=== PATIENT | male | born 1975 | race Caucasian/White ===

== ENCOUNTER 2020-07-14 06:58 | Emergency (ER) | payer OTHER ==
[2020-07-14 07:45] LABS: CARBON DIOXIDE,CO2 23.3 mmol/L (21.0-32.0); POTASSIUM,K 3.4 mmol/L (3.5-5.1)
[2020-07-14] MEDS ORDERED: Albuterol/Ipratropium 3.0-0.5 MG/3 ML Neb Soln NEB STA (07:47)
[2020-07-14] MEDS ORDERED: methylPREDNISolone Sodium Succinate 40 MG/1 ML SDV IVPUSH ONE (07:48)
--- NOTE | 2020-07-14 07:52 | CR ---
INDICATION: Cough; shortness of breath. COMPARISON: [facility]-view chest June 03, 2019. TECHNIQUE: Portable AP chest. FINDINGS: Normal size cardiac silhouette. Clear lung dexter with no evidence of acute pneumonic infiltrates or CHF. No pneumothorax or pleural effusion. IMPRESSION: No acute pathology. Dictated by El Curry MD @ Jul 14 2020 7:50AM Signed by Dr. El Curry @ Jul 14 2020 7:51AM
[2020-07-14] MEDS ORDERED: Albuterol/Ipratropium 3.0-0.5 MG/3 ML Neb Soln NEB ONE ×2 (08:05→08:20)
[2020-07-14] MEDS ORDERED: Iopamidol 755 MG/ML 500 ML Multipack Bottle IVPUSH STA (09:29)
--- NOTE | 2020-07-14 09:54 | CT ---
INDICATION: Shortness of breath; cough; elevated D-dimer; rule out pulmonary thromboembolism. COMPARISON: Chest radiograph 07/14/2020. TECHNIQUE: CT chest with intravenous contrast; coronal and sagittal reformats. FINDINGS: No CT evidence of pulmonary thromboembolism. Normal size cardiac silhouette without any evidence of pericardial effusion. No abnormal intra pulmonary nodular densities are identified. No evidence of pleural effusion or chest wall pathology. No evidence of pulmonary infiltrates on either side. No pneumothorax or pleural effusion. Limited CT through the upper abdomen is unremarkable. IMPRESSION: Negative CT chest with intravenous contrast. Please note that all CT scans at this facility use dose modulation, iterative reconstruction, and/or weight-based dosing when appropriate to reduce radiation dose to as low as reasonably achievable. Dictated by El Curry MD @ Jul 14 2020 9:48AM Signed by Dr. El Curry @ Jul 14 2020 9:52AM
[2020-07-14] MEDS ORDERED: Azithromycin 250 MG Tab PO STA (09:59)
--- NOTE | 2020-07-14 10:43 | EDM.PDOC ---
ED HPI GENERAL MEDICAL PROBLEM - General Chief Complaint: Respiratory Problem Stated Complaint: TROUBLE BREATHING Time Seen by Provider: 07/14/20 07:11 - History of Present Illness INITIAL COMMENTS - FREE TEXT/NARRATIVE: CHIEF COMPLAINT(S): "I feel like shit." HISTORY OF PRESENT ILLNESS: This is a 44-year-old man with a past medical history of tachycardia and undergoing work-up currently for COPD who comes to the emergency department with a chief complaint of "I feel like shit." The patient states that he feels like shit and that he has to have Covid or pneumonia. The patient states that for the last 4 days he has been experiencing a cough with brownish sputum, shortness of breath. He states that he is undergoing work-up for COPD as he had been smoking 2 packs of cigarettes a day for quite some time. He states that he has gone down to 2 cigarettes a day. He states that he has pulmonary function test scheduled on July 28. He states that he use albuterol at home. He is out of his albuterol. He denies any chest pain, fever, chills, lower extremity edema. He denies any recent travel or recent surgery denies any history of DVT or PE. He states that he has had Mucinex but it does not seem to be working. He states in addition to the cough he is experiencing congestion from allergies. He states that he cannot take any medications because of his prostate as it causes him to increased urination. In addition approximately 2-1/2 to 3 months ago he was diagnosed with "thick blood." He states that in his primary care office they did phlebotomy and they told him that this was due to his smoking and possible COPD. He states that he has had pneumonia in the past and this feels similar. REVIEW OF SYSTEMS: Constitutional: Denies fever, chills. Eyes: Denies eye pain Ears, Nose, Mouth, & Throat: Positive for sinus congestion Cardiovascular: Denies chest pain Respiratory: Positive for shortness of breath and productive cough. Gastrointestinal: Denies Nausea, vomiting, diarrhea, hematochezia. Genitourinary: Denies hematuria Skin:Denies a rash MSK: Denies joint pain Neurological: Positive for headache. Denies numbness, tingling, weakness, diplopia Psychiatric: Denies depression PAST MEDICAL HISTORY: As per history of present illness and as reviewed below otherwise noncontributory. SURGICAL HISTORY: As per history of present illness and as reviewed below otherwise noncontributory. SOCIAL HISTORY: As per history of present illness and as reviewed below otherwise noncontributory. FAMILY HISTORY: As per history of present illness and as reviewed below otherwise noncontributory. EXAMINATION OF ORGAN SYSTEMS/BODY AREAS: Constitutional: Blood pressure was 101/63, heart rate 101, respiratory rate 20 with an oxygen saturation 96% on room air. Temperature 36.4. General: Young man who does appear to be in a moderate amount of respiratory distress Psychiatric: Appropriate mood and affect. Eyes: No scleral icterus or conjunctival erythema ENMT: Moist mucous membranes. No pharyngeal erythema Cardiovascular: Tachycardic but regular no gallops, murmurs, or rubs. Bilateral upper extremity pulses symmetric and intact. No peripheral edema. No JVD. Respiratory: The patient is tachypneic and speaking in 3-4 word sentences. Bilateral expiratory wheezing noted. No crackles. Gastrointestinal: Soft, non-tender, non-distended. Normoactive bowel sounds Genitourinary: No suprapubic tenderness Musculoskeletal: Normal range of motion. Skin: No lesions or abrasions. Neurological: Alert, GCS 15 strength and sensation grossly intact. MEDICAL DECISION MAKING AND COURSE IN THE ED WITH INTERPRETATION/REVIEW OF DIAGNOSTIC STUDIES: This is a 44-year-old man with a past medical history of nonspecific tachycardia and possible COPD who comes to the emergency department with 4 days of shortness of breath and increased sputum production who is tachycardic and tachypneic. At this time given the possibility of COPD and his ongoing work-up we will treat him for COPD exacerbation. We did obtain an EKG which did not reveal any acute signs of ischemia. Differential also includes pneumonia, ACS, pulmonary embolism. Will obtain CBC, BMP, magnesium, troponin, BNP, D-dimer and a Covid swab. We will provide the patient with 3 DuoNeb treatments and IV Solu-Medrol. Given the increase sputum production we will start the patient on Zithromax 500 mg by mouth. We will reevaluate after treatment. Laboratory: CBC reveals a mild leukocytosis of 12.18 with neutrophilic predominance without any left shift. BMP reveals hypokalemia at 3.4, hypocalcemia at 8.4, normal magnesium at 20. Troponin and BNP are negative. D- dimer is positive at 1.48. Covid is negative. The radiological images were viewed by myself along with reading the report from the radiologist. Chest x-ray does not reveal any acute cardiopulmonary process. On reevaluation after DuoNeb treatment to the patient's breathing significantly improved and was able to speak in full sentences. Given the elevated D-dimer we will obtain a CT PE for evaluation. He was amenable to this plan. The radiological images were viewed by myself along with reading the report from the radiologist. CT angiogram of the chest does not reveal any evidence of acute pulmonary embolism. On reevaluation I did discuss results with the patient. I discussed with him I had like to provide him with steroids, azithromycin and an albuterol prescription. I encouraged him to continue to follow-up with his primary care physician and to get his test done given that I do believe this is secondary to COPD. He does have a history of tachycardia and the patient did remain tachycardic throughout her evaluation he is currently getting worked up with outpatient work-up. I continued to encourage him to follow-up. He was amenable discharge at this time and had no further questions. DISPOSITION: The patient was discharged home in stable condition. The patient will follow up with primary care physician within 2 to 3 days CONDITION: Fair PROCEDURES: None FINAL IMPRESSION(S)/DIAGNOSES: 1. Acute dyspnea likely secondary to COPD exacerbation 2. Acute on chronic tachycardia, unknown etiology Wong Dalton M.D. Headache Pain Score (Numeric/FACES): 10 - Related Data Allergies Allergy/AdvReac Type Severity Reaction Status Date / Time No Known Allergies Allergy Verified 07/14/20 07:17 Home Meds: Home Meds Albuterol Sulfate [Albuterol Sulfate HFA] 1 puff INH ASDIRECTED 07/14/20 [History] Albuterol Sulfate [Albuterol Sulfate HFA] 8.5 gm INH Q4HR PRN #1 inhaler 07/14/20 [Rx] Azithromycin [Zithromax] 250 mg PO DAILY #4 tab 07/14/20 [Rx] Fluticasone Propionate [Flonase] 16 gm .XX BID #2 bottle 07/14/20 [Rx] Losartan [Cozaar] 50 mg PO DAILY 07/14/20 [History] predniSONE [Prednisone] 50 mg PO DAILY #5 tablet 07/14/20 [Rx] Past Medical History Cardiovascular History: Reports: Hypertension Genitourinary History: Reports: Renal Calculus - Past Surgical History Male Surgical History: Reports: Lithotripsy (ESWL) Social & Family History - Tobacco Use Years of Tobacco use: 32 - Recreational Drug Use Recreational Drug Use: No ED ROS GENERAL - Review of Systems Review Of Systems: See Below ED EXAM, GENERAL - Physical Exam Exam: See Below Course - Vital Signs Last Recorded V/S: Last Vital Signs Temp 36.4 C 07/14/20 07:17 Pulse 104 H 07/14/20 10:35 Resp 21 H 07/14/20 08:17 BP 126/57 L 07/14/20 10:35 Pulse Ox 93 L 07/14/20 10:35 - Orders/Labs/Meds Labs: Laboratory Tests 07/14/20 07/14/20 07/14/20 Range/Units 07:23 07:23 07:23 WBC 12.18 H (4.0-11.0) K/uL RBC 4.88 (4.50-5.90) M/uL Hgb 15.8 (13.0-17.0) g/dL Hct 46.2 (38.0-50.0) % MCV 94.7 (80.0-98.0) fL MCH 32.4 H (27.0-32.0) pg MCHC 34.2 (31.0-37.0) g/dL RDW Std Deviation 43.6 (28.0-62.0) fl RDW Coeff of Mandi 13 (11.0-15.0) % Plt Count 241 (150-400) K/uL MPV 10.70 (7.40-12.00) fL Neut % (Auto) 71.8 (48.0-80.0) % Lymph % (Auto) 17.3 (16.0-40.0) % [place] % (Auto) 6.3 (0.0-15.0) % Eos % (Auto) 4.0 (0.0-7.0) % Baso % (Auto) 0.6 (0.0-1.5) % Neut # (Auto) 8.7 H (1.4-5.7) K/uL Lymph # (Auto) 2.1 (0.6-2.4) K/uL [place] # (Auto) 0.8 (0.0-0.8) K/uL Eos # (Auto) 0.5 (0.0-0.7) K/uL Baso # (Auto) 0.1 (0.0-0.1) K/uL Nucleated RBC % 0.0 /100WBC Nucleated RBCs # 0 K/uL D-Dimer, Quantitative 1.48 H (0.0-0.50) mg/L FEU Sodium 141 (136-148) mmol/L Potassium 3.4 L (3.5-5.1) mmol/L Chloride 105 (98-107) mmol/L Carbon Dioxide 23.3 (21.0-32.0) mmol/L BUN 19 H (7.0-18.0) mg/dL Creatinine 1.3 (0.8-1.3) mg/dL Est Cr Clr Drug Dosing 65.44 mL/min Estimated GFR (MDRD) 60.0 ml/min Glucose 103 (74-106) mg/dL Calcium 8.4 L (8.5-10.1) mg/dL Magnesium 2.0 (1.8-2.4) mg/dL Troponin I (0.000-0.056) ng/mL B-Natriuretic Peptide (<100) PG/ML SARS-CoV-2 RNA (TODD) (NEGATIVE) 07/14/20 07/14/20 07/14/20 Range/Units 07:23 07:23 07:51 WBC (4.0-11.0) K/uL RBC (4.50-5.90) M/uL Hgb (13.0-17.0) g/dL Hct (38.0-50.0) % MCV (80.0-98.0) fL MCH (27.0-32.0) pg MCHC (31.0-37.0) g/dL RDW Std Deviation (28.0-62.0) fl RDW Coeff of Mandi (11.0-15.0) % Plt Count (150-400) K/uL MPV (7.40-12.00) fL Neut % (Auto) (48.0-80.0) % Lymph % (Auto) (16.0-40.0) % [place] % (Auto) (0.0-15.0) % Eos % (Auto) (0.0-7.0) % Baso % (Auto) (0.0-1.5) % Neut # (Auto) (1.4-5.7) K/uL Lymph # (Auto) (0.6-2.4) K/uL [place] # (Auto) (0.0-0.8) K/uL Eos # (Auto) (0.0-0.7) K/uL Baso # (Auto) (0.0-0.1) K/uL Nucleated RBC % /100WBC Nucleated RBCs # K/uL D-Dimer, Quantitative (0.0-0.50) mg/L FEU Sodium (136-148) mmol/L Potassium (3.5-5.1) mmol/L Chloride (98-107) mmol/L Carbon Dioxide (21.0-32.0) mmol/L BUN (7.0-18.0) mg/dL Creatinine (0.8-1.3) mg/dL Est Cr Clr Drug Dosing mL/min Estimated GFR (MDRD) ml/min Glucose (74-106) mg/dL Calcium (8.5-10.1) mg/dL Magnesium (1.8-2.4) mg/dL Troponin I < 0.050 (0.000-0.056) ng/mL B-Natriuretic Peptide 4 (<100) PG/ML SARS-CoV-2 RNA (TODD) NEGATIVE (NEGATIVE) Meds: Medications Discontinued Medications Generic Name Dose Route Start Last Admin Trade Name Jezq PRN Reason Stop Dose Admin Albuterol/Ipratropium 3 ml 07/14/20 07:47 07/14/20 08:11 Albuterol/Ipratropium 3.0-0.5 Mg/3 Ml Neb Soln NEB 07/14/20 07:48 3 ml ONETIME STA Administration Albuterol/Ipratropium 3 ml 07/14/20 08:05 07/14/20 08:11 Albuterol/Ipratropium 3.0-0.5 Mg/3 Ml Neb Soln NEB 07/14/20 08:06 3 ml ONETIME ONE Administration Albuterol/Ipratropium 3 ml 07/14/20 08:20 07/14/20 08:11 Albuterol/Ipratropium 3.0-0.5 Mg/3 Ml Neb Soln NEB 07/14/20 08:21 3 ml ONETIME ONE Administration Azithromycin 500 mg 07/14/20 09:59 07/14/20 10:24 Azithromycin 250 Mg Tab PO 07/14/20 10:00 500 mg ONETIME STA Administration Iopamidol 100 ml 07/14/20 09:29 07/14/20 09:48 Iopamidol 755 Mg/Ml 500 Ml Multipack Bottle IVPUSH 07/14/20 09:30 100 ml ONETIME STA Administration Methylprednisolone Sodium Succinate 40 mg 07/14/20 07:48 07/14/20 08:32 Methylprednisolone Sodium Succinate 40 Mg/1 Ml Sdv IVPUSH 07/14/20 07:49 40 mg ONETIME ONE Administration Departure - Departure Time of Disposition: 10:41 Disposition: Home, Self-Care 01 Condition: Fair Clinical Impression: Bronchitis - Discharge Information *PRESCRIPTION DRUG MONITORING PROGRAM REVIEWED*: No *COPY OF PRESCRIPTION DRUG MONITORING REPORT IN PATIENT CARLEE: No Prescriptions: Albuterol Sulfate [Albuterol Sulfate HFA] 8.5 gm INH Q4HR PRN #1 inhaler PRN Reason: Shortness Of Breath Fluticasone Propionate [Flonase] 16 gm .XX BID #2 bottle predniSONE [Prednisone] 50 mg PO DAILY #5 tablet Azithromycin [Zithromax] 250 mg PO DAILY #4 tab Instructions: Chronic Obstructive Pulmonary Disease Exacerbation, [id number], Metered Dose Inhaler (No Spacer Used), Postnasal Drip, Allergic Rhinitis, Adult Referrals: Deondre Nuno MD [Primary Care Provider] - Forms: ED Department Discharge Additional Instructions: Your evaluated today on an emergent basis. At this time after the albuterol treatments your symptoms did improve. We did provide you with azithromycin for which I want you to take daily for the next 4 days. In addition we provide you with steroids I recommend you take 5 days of steroids at home. I did recommend Zyrtec and Flonase for allergic symptoms. Your heart rate is elevated and it does appear that you have been working with your primary care physician to figure out the cause. At this time your work-up was negative and your rhythm strip of your heart looked well. I recommend use albuterol every 4-6 hours as needed for shortness of breath and wheezing. Please keep your appointment for pulmonary function tests and follow-up with your primary care physician within 1 week. If you have any new or worsening symptoms please return to the emergency department [facility] [address] [place] [address] [facility] [address] [place] [address] The patient is informed of any results of their evaluation and diagnostic workup and all questions are answered. They are given discharge instructions and return precautions. The patient is stable for discharge. The patient states they understand and agree with the plan and that they will return if their symptoms get worse or if they have any new concerns. The following information is given to patients seen in the emergency department who are being discharged to home. This information is to outline your options for follow-up care. We provide all patients seen in our emergency department with a follow-up referral. The need for follow-up, as well as the timing and circumstances, are variable depending upon the specifics of your emergency department visit. If you don't have a primary care physician on staff, we will provide you with a referral. We always advise you to contact your personal physician following an emergency department visit to inform them of the circumstance of the visit and for follow-up with them and/or the need for any referrals to a consulting specialist. The emergency department will also refer you to a specialist when appropriate. This referral assures that you have the opportunity for follow-up care with a specialist. All of these measure are taken in an effort to provide you with optimal care, which includes your follow-up. Under all circumstances we always encourage you to contact your private physician who remains a resource for coordinating your care. When calling for follow-up care, please make the office aware that this follow-up is from your recent emergency room visit. If for any reason you are refused follow-up, please contact the [facility] Emergency Department at and asked to speak to the emergency department charge nurse. Sepsis Event Note (ED) - Evaluation Sepsis Screening Result: Possible Sepsis Risk
--- NOTE | 2020-07-15 09:35 | PCM.EKG ---
#1 Interpretation EKG Date: 07/14/20 Time: 07:25 Rhythm: NSR Rate (Beats/Min): 101 [place]: Normal P-Wave: Present QRS: Normal ST-T: Normal QT: Normal Comparison: NA - No Prior EKG EKG Interpretation Comments: Sinus Rhythm with occasional PAC
== END 2020-07-14 11:13 | disposition home or self-care (01) ==
LOC: MW.ED 06:58
DX: J40 Bronchitis, not specified as acute or chronic (principal); R00.0 Tachycardia, unspecified; I10 Essential (primary) hypertension; F17.210 Nicotine dependence, cigarettes, uncomplicated; Z79.899 Other long term (current) drug therapy; Z20.822 Contact with and (suspected) exposure to COVID-19
CPT/HCPCS: 36415; 71045; 71275; 80048; 83735; 83880; 84484; 85025; 85379; 87635; 93005; 94640; 96374; 99285; A9270; J2920; Q9967; 93010; 99284; J7620-GY; U0002

== ENCOUNTER 2020-07-18 14:59 | Emergency (ER) | payer OTHER ==
--- NOTE | 2020-07-18 15:02 | EDM.PDOC ---
ED HPI GENERAL MEDICAL PROBLEM - General Chief Complaint: General Stated Complaint: not feeling good Time Seen by Provider: 07/18/20 15:02 Source of Information: Reports: Patient History Limitations: Reports: No Limitations - History of Present Illness INITIAL COMMENTS - FREE TEXT/NARRATIVE: HISTORY AND PHYSICAL: History of present illness: Patient is a 44-year-old male who presents to the emergency room with multiple vague complaints. Patient was seen in our emergency room on 07/14/2020 for cough, shortness of breath and chest pain. He was given a prescription for Z- Calderon, steroid and refilled his albuterol inhaler. He states he has been taking his antibiotic, except for today as he had returning symptoms of shortness of breath, sore throat, sensation of his lips and throat swelling. He is concerned he may have an allergic reaction to his antibiotic and has "strep throat". States he feels nauseated and hasn't been able to keep anything down. reports that he has had shortness of breath and intermittent chest pain for a few years, but worse over the past 1-2 months. Patient denies any fever, chills, headache, change in vision, syncope or near syncope. Denies any chest pain, back pain or cough. Denies any abdominal pain, diarrhea, constipation or dysuria. Has not noted any blood in urine or stool. Patient has been eating and drinking appropriately. Patient was previously a 2 ppd/smoker and has now cut back to just a few cigarettes per day. PMH of hypertension, renal stones and currently being "worked up for COPD". Review of systems: As per history of present illness and below otherwise all systems reviewed and negative. Past medical history: As per history of present illness and as reviewed below otherwise noncontributory. Surgical history: As per history of present illness and as reviewed below otherwise noncontributory. Social history: See social history for further information Family history: As per history of present illness and as reviewed below otherwise noncontributory. Physical exam: General: Well developed and well nourished 44 year old male. Alert and orientated x 3. Nontoxic in appearance and in no acute distress. Vital signs have been reviewed by me. Nursing notes were reviewed. Accompanied by whom is at bedside. HEENT: Atraumatic, normocephalic, pupils equal and reactive bilaterally, negative for conjunctival pallor or scleral icterus, mucous membranes dry/barry, TMs normal bilaterally, throat clear (no erythema or pillar shifting/fullness), neck supple, nontender, trachea midline. No drooling or trismus noted. No meningeal signs. No hot potato voice noted. Lungs: Slightly diminished to auscultation bilaterally. No wheezes, rales, or rhonchi. Chest nontender. Normal work of breathing, no accessory muscles used. Heart: S1S2, tachycardia with regular rate and rhythm without overt murmur, gallops, or rubs. No JVD. No peripheral edema Abdomen: Soft, nondistended, nontender. Normoactive bowel sounds. Negative for masses or costovertebral tenderness. Skin: Chronic dermatitis to upper back and chest (states he's had for years). Otherwise skin is intact, warm, dry. No lesions or rashes noted. Hematologic: No petechiae or purpra. Mucosa appropriate color and normal nail bed color and refill. Extremities: Atraumatic, moves all extremities per self without difficulty or deficits, negative for cords or calf pain. Neurovascular unremarkable. Neuro: Awake, alert, oriented. Cranial nerves II through XII unremarkable. Cerebellum unremarkable. Motor and sensory unremarkable throughout. Exam n onfocal. Psychiatric: Mood and affect are appropriate. Normal thought process. Answering questions appropriately. Notes: *This patient was seen and evaluated during the 2019 SARS-CoV-2 novel coronav irus pandemic period. Community viral transmission is ongoing at time of this encounter and the emergency department is operating under pandemic response procedures. Reviewing patient's ER chart from 07/14/20: patient has similar vague symptoms. It is noted that he's been diagnosed with unspecified tachycardia and is being evaluated for COPD. He has a pulmonary function test with Dr Nuno on 07/28/20. CXR is unremarkable. Patient has a leukocytosis, but has been on steriods over the past 5 days. Due to the initial tachycardia and c/o SOB, a d.dimer was added (even though it was elevated in his last ER visit) it is elevated again today. Will do a CT of chest/abd/pelvis. Vital signs have improved. Negative troponin. CT abd/pelvis shows mild circumferential wall thickening of the distal esophagus (in visualization of lower chest), with associated paraesophageal inflammatory changes including a trace amount of free fluid. Findings likely represent esophagitis. No definite extraluminal air is seen to suggest an esophageal tear/rupture (Boerhaave syndrome). Chest CT shows no evidence of an acute pulmonary embolus. As noted on the CT of the abdomen and pelvis, there is abnormal circumferential wall thickening of the esophagus, with associated paraesophageal inflammatory changes including a trace amount of free fluid. No definite extraluminal air is seen to suggest an esophageal tear/perforation. If there is high clinical suspicion for an esophageal tear, consider further assessment with either an esophagram or EGD. I have talked with the patient about today's findings, including CT results. We discussed admission vs close follow up. Patient declines admission. We will try a GI cocktail. He states he has close follow up with [facility] and is scheduled to see him next week. Reassessment at the time of disposition demonstrates that the patient is in no acute distress. The patient is stable for discharge. Patient and were provided counseling and we discussed in great detail signs and symptoms that would prompt them to return to the Emergency Department. Medication, follow up and supportive care measures were reviewed and discussed. Voices understanding and is agreeable to plan of care. Denies any further questions or concerns at this time. Diagnostics: CBC, CMP, D.Dimer, EKG, CXR, Troponin, UA, Drug Screen, TSH, Strep Therapeutics: IV fluids, Benadryl, Zofran, Pepcid Prescription: Omeprazole Impression: Esophagitis Pharyngitis Plan: 1. You were evaluated today on an emergent basis. Your lab work and imagining show no immediate findings. I would like you to follow up with general surgeon for the inflammatory changes of the esophagus (as we discussed). Take the Omeprazole as directed. Follow up with [facility] for continued symptoms/management. 2. You can alternate Tylenol and ibuprofen as needed for pain and fever management. 3. If your symptoms should worsen, new symptoms develop or any of the signs and symptoms we discussed should arise please return to the emergency room or call 911 (if needed). Definitive disposition and diagnosis as appropriate pending reevaluation and review of above. - Related Data Allergies Allergy/AdvReac Type Severity Reaction Status Date / Time No Known Allergies Allergy Verified 07/18/20 15:07 Home Meds: Home Meds Albuterol Sulfate [Albuterol Sulfate HFA] 1 puff INH ASDIRECTED 07/14/20 [History] Albuterol Sulfate [Albuterol Sulfate HFA] 8.5 gm INH Q4HR PRN #1 inhaler 07/14/20 [Rx] Azithromycin [Zithromax] 250 mg PO DAILY #4 tab 07/14/20 [Rx] Fluticasone Propionate [Flonase] 16 gm .XX BID #2 bottle 07/14/20 [Rx] Losartan [Cozaar] 50 mg PO DAILY 07/14/20 [History] predniSONE [Prednisone] 50 mg PO DAILY #5 tablet 07/14/20 [Rx] Omeprazole 20 mg PO DAILY 30 Days #30 tablet. 07/18/20 [Rx] Past Medical History Cardiovascular History: Reports: Hypertension Genitourinary History: Reports: Renal Calculus - Past Surgical History Male Surgical History: Reports: Lithotripsy ([facility]) ED ROS GENERAL - Review of Systems Review Of Systems: Comprehensive ROS is negative, except as noted in HPI. ED EXAM, GENERAL - Physical Exam Exam: See Below (See dictation) Course - Vital Signs Last Recorded V/S: Last Vital Signs Temp 98.9 F 07/18/20 15:08 Pulse 108 H 07/18/20 15:52 Resp 18 07/18/20 15:52 BP 129/91 H 07/18/20 15:52 Pulse Ox 96 07/18/20 15:52 - Orders/Labs/Meds Orders: Active Orders 24 hr Category Date Time Status EKG Documentation Completion [RC] STAT Care 07/18/20 15:13 Active Labs: Laboratory Tests 07/18/20 07/18/20 07/18/20 Range/Units 15:15 15:15 15:15 WBC 16.76 H (4.0-11.0) K/uL RBC 5.26 (4.50-5.90) M/uL Hgb 16.7 (13.0-17.0) g/dL Hct 48.2 (38.0-50.0) % MCV 91.6 (80.0-98.0) fL MCH 31.7 (27.0-32.0) pg MCHC 34.6 (31.0-37.0) g/dL RDW Std Deviation 41.1 (28.0-62.0) fl RDW Coeff of [place] 13 (11.0-15.0) % Plt Count 270 (150-400) K/uL MPV 10.40 (7.40-12.00) fL Neut % (Auto) 87.1 H (48.0-80.0) % Lymph % (Auto) 5.7 L (16.0-40.0) % [place] % (Auto) 6.3 (0.0-15.0) % Eos % (Auto) 0.7 (0.0-7.0) % Baso % (Auto) 0.2 (0.0-1.5) % Neut # (Auto) 14.6 H (1.4-5.7) K/uL Lymph # (Auto) 1.0 (0.6-2.4) K/uL [place] # (Auto) 1.1 H (0.0-0.8) K/uL Eos # (Auto) 0.1 (0.0-0.7) K/uL Baso # (Auto) 0.0 (0.0-0.1) K/uL D-Dimer, Quantitative (0.0-0.50) mg/L FEU Lactate 0.7 (0.20-2.00) mmol/L Sodium 139 (136-148) mmol/L Potassium 4.0 (3.5-5.1) mmol/L Chloride 103 (98-107) mmol/L Carbon Dioxide 26.5 (21.0-32.0) mmol/L BUN 24 H (7.0-18.0) mg/dL Creatinine 1.0 (0.8-1.3) mg/dL Est Cr Clr Drug Dosing 85.07 mL/min Estimated GFR (MDRD) > 60.0 ml/min Glucose 124 H (74-106) mg/dL Calcium 8.8 (8.5-10.1) mg/dL Total Bilirubin 0.8 (0.2-1.0) mg/dL AST 20 (15-37) IU/L ALT 48 (14-63) IU/L Alkaline Phosphatase 61 (46-116) U/L Troponin I < 0.050 (0.000-0.056) ng/mL Total Protein 7.3 (6.4-8.2) g/dL Albumin 4.0 (3.4-5.0) g/dL Globulin 3.3 (2.6-4.0) g/dL Albumin/Globulin Ratio 1.2 (0.9-1.6) Lipase 117 (73-393) U/L TSH 3rd Generation 0.49 (0.36-3.74) uIU/mL Urine Color Urine Appearance Urine pH (5.0-8.0) Ur Specific [place] (1.001-1.035) Urine Protein (NEGATIVE) mg/dL Urine Glucose (UA) (NEGATIVE) mg/dL Urine Ketones (NEGATIVE) mg/dL Urine Occult Blood (NEGATIVE) Urine Nitrite (NEGATIVE) Urine Bilirubin (NEGATIVE) Urine Urobilinogen (<2.0) EU/dL Ur Leukocyte Esterase (NEGATIVE) Urine RBC (0-2/HPF) Urine WBC (0-5/HPF) Ur Epithelial Cells (NONE-FEW) Urine Bacteria (NEGATIVE) Urine Opiates Screen (NEGATIVE) Ur Oxycodone Screen (NEGATIVE) Urine Methadone Screen (NEGATIVE) Ur Barbiturates Screen (NEGATIVE) Ur Phencyclidine Scrn (NEGATIVE) Ur Amphetamine Screen (NEGATIVE) U Methamphetamines Scrn (NEGATIVE) U Benzodiazepines Scrn (NEGATIVE) U Cocaine Metab Screen (NEGATIVE) U Marijuana (THC) Screen (NEGATIVE) Group A Strep (PCR) (NOT DETECT) 07/18/20 07/18/20 07/18/20 Range/Units 15:15 15:35 16:15 WBC (4.0-11.0) K/uL RBC (4.50-5.90) M/uL Hgb (13.0-17.0) g/dL Hct (38.0-50.0) % MCV (80.0-98.0) fL MCH (27.0-32.0) pg MCHC (31.0-37.0) g/dL RDW Std Deviation (28.0-62.0) fl RDW Coeff of [place] (11.0-15.0) % Plt Count (150-400) K/uL MPV (7.40-12.00) fL Neut % (Auto) (48.0-80.0) % Lymph % (Auto) (16.0-40.0) % [place] % (Auto) (0.0-15.0) % Eos % (Auto) (0.0-7.0) % Baso % (Auto) (0.0-1.5) % Neut # (Auto) (1.4-5.7) K/uL Lymph # (Auto) (0.6-2.4) K/uL [place] # (Auto) (0.0-0.8) K/uL Eos # (Auto) (0.0-0.7) K/uL Baso # (Auto) (0.0-0.1) K/uL D-Dimer, Quantitative 1.84 H (0.0-0.50) mg/L FEU Lactate (0.20-2.00) mmol/L Sodium (136-148) mmol/L Potassium (3.5-5.1) mmol/L Chloride (98-107) mmol/L Carbon Dioxide (21.0-32.0) mmol/L BUN (7.0-18.0) mg/dL Creatinine (0.8-1.3) mg/dL Est Cr Clr Drug Dosing mL/min Estimated GFR (MDRD) ml/min Glucose (74-106) mg/dL Calcium (8.5-10.1) mg/dL Total Bilirubin (0.2-1.0) mg/dL AST (15-37) IU/L ALT (14-63) IU/L Alkaline Phosphatase (46-116) U/L Troponin I (0.000-0.056) ng/mL Total Protein (6.4-8.2) g/dL Albumin (3.4-5.0) g/dL Globulin (2.6-4.0) g/dL Albumin/Globulin Ratio (0.9-1.6) Lipase (73-393) U/L TSH 3rd Generation (0.36-3.74) uIU/mL Urine Color YELLOW Urine Appearance CLEAR Urine pH 6.0 (5.0-8.0) Ur Specific [place] 1.015 (1.001-1.035) Urine Protein NEGATIVE (NEGATIVE) mg/dL Urine Glucose (UA) NEGATIVE (NEGATIVE) mg/dL Urine Ketones NEGATIVE (NEGATIVE) mg/dL Urine Occult Blood SMALL H (NEGATIVE) Urine Nitrite NEGATIVE (NEGATIVE) Urine Bilirubin NEGATIVE (NEGATIVE) Urine Urobilinogen 0.2 (<2.0) EU/dL Ur Leukocyte Esterase NEGATIVE (NEGATIVE) Urine RBC 1-2 (0-2/HPF) Urine WBC 0-1 (0-5/HPF) Ur Epithelial Cells FEW (NONE-FEW) Urine Bacteria RARE (NEGATIVE) Urine Opiates Screen (NEGATIVE) Ur Oxycodone Screen (NEGATIVE) Urine Methadone Screen (NEGATIVE) Ur Barbiturates Screen (NEGATIVE) Ur Phencyclidine Scrn (NEGATIVE) Ur Amphetamine Screen (NEGATIVE) U Methamphetamines Scrn (NEGATIVE) U Benzodiazepines Scrn (NEGATIVE) U Cocaine Metab Screen (NEGATIVE) U Marijuana (THC) Screen (NEGATIVE) Group A Strep (PCR) NOT DETECTED (NOT DETECT) 07/18/20 Range/Units 16:15 WBC (4.0-11.0) K/uL RBC (4.50-5.90) M/uL Hgb (13.0-17.0) g/dL Hct (38.0-50.0) % MCV (80.0-98.0) fL MCH (27.0-32.0) pg MCHC (31.0-37.0) g/dL RDW Std Deviation (28.0-62.0) fl RDW Coeff of [place] (11.0-15.0) % Plt Count (150-400) K/uL MPV (7.40-12.00) fL Neut % (Auto) (48.0-80.0) % Lymph % (Auto) (16.0-40.0) % [place] % (Auto) (0.0-15.0) % Eos % (Auto) (0.0-7.0) % Baso % (Auto) (0.0-1.5) % Neut # (Auto) (1.4-5.7) K/uL Lymph # (Auto) (0.6-2.4) K/uL [place] # (Auto) (0.0-0.8) K/uL Eos # (Auto) (0.0-0.7) K/uL Baso # (Auto) (0.0-0.1) K/uL D-Dimer, Quantitative (0.0-0.50) mg/L FEU Lactate (0.20-2.00) mmol/L Sodium (136-148) mmol/L Potassium (3.5-5.1) mmol/L Chloride (98-107) mmol/L Carbon Dioxide (21.0-32.0) mmol/L BUN (7.0-18.0) mg/dL Creatinine (0.8-1.3) mg/dL Est Cr Clr Drug Dosing mL/min Estimated GFR (MDRD) ml/min Glucose (74-106) mg/dL Calcium (8.5-10.1) mg/dL Total Bilirubin (0.2-1.0) mg/dL AST (15-37) IU/L ALT (14-63) IU/L Alkaline Phosphatase (46-116) U/L Troponin I (0.000-0.056) ng/mL Total Protein (6.4-8.2) g/dL Albumin (3.4-5.0) g/dL Globulin (2.6-4.0) g/dL Albumin/Globulin Ratio (0.9-1.6) Lipase (73-393) U/L TSH 3rd Generation (0.36-3.74) uIU/mL Urine Color Urine Appearance Urine pH (5.0-8.0) Ur Specific [place] (1.001-1.035) Urine Protein (NEGATIVE) mg/dL Urine Glucose (UA) (NEGATIVE) mg/dL Urine Ketones (NEGATIVE) mg/dL Urine Occult Blood (NEGATIVE) Urine Nitrite (NEGATIVE) Urine Bilirubin (NEGATIVE) Urine Urobilinogen (<2.0) EU/dL Ur Leukocyte Esterase (NEGATIVE) Urine RBC (0-2/HPF) Urine WBC (0-5/HPF) Ur Epithelial Cells (NONE-FEW) Urine Bacteria (NEGATIVE) Urine Opiates Screen NEGATIVE (NEGATIVE) Ur Oxycodone Screen NEGATIVE (NEGATIVE) Urine Methadone Screen NEGATIVE (NEGATIVE) Ur Barbiturates Screen NEGATIVE (NEGATIVE) Ur Phencyclidine Scrn NEGATIVE (NEGATIVE) Ur Amphetamine Screen NEGATIVE (NEGATIVE) U Methamphetamines Scrn NEGATIVE (NEGATIVE) U Benzodiazepines Scrn NEGATIVE (NEGATIVE) U Cocaine Metab Screen NEGATIVE (NEGATIVE) U Marijuana (THC) Screen NEGATIVE (NEGATIVE) Group A Strep (PCR) (NOT DETECT) Meds: Medications Discontinued Medications Generic Name Dose Route Start Last Admin Trade Name Freq PRN Reason Stop Dose Admin Al Hydroxide/Mg Hydroxide 15 0 ml 07/18/20 17:26 07/18/20 17:31 ml/ Metoclopramide HCl 5 mg/ PO 07/18/20 17:27 1 each Lidocaine HCl 5 ml ONETIME ONE Administration Diphenhydramine HCl 50 mg 07/18/20 15:13 07/18/20 15:25 Diphenhydramine 50 Mg/Ml Sdv IVPUSH 07/18/20 15:14 50 mg ONETIME ONE Administration Famotidine 20 mg 07/18/20 15:13 07/18/20 15:25 Famotidine 20 Mg/2 Ml Sdv IVPUSH 07/18/20 15:14 20 mg ONETIME ONE Administration Sodium Chloride 1,000 mls @ 999 mls/hr 07/18/20 15:13 07/18/20 15:24 Normal Saline IV 07/18/20 16:13 999 mls/hr STAT ONE Administration Iopamidol 100 ml 07/18/20 16:17 07/18/20 16:18 Iopamidol 755 Mg/Ml 500 Ml Multipack Bottle IVPUSH 07/18/20 16:18 100 ml ONETIME ONE Administration Ondansetron HCl 4 mg 07/18/20 15:13 07/18/20 15:25 Ondansetron 4 Mg/2 Ml Sdv IVPUSH 07/18/20 15:14 4 mg ONETIME ONE Administration Departure - Departure Time of Disposition: 17:31 Disposition: Home, Self-Care 01 Clinical Impression: Esophagitis Pharyngitis Qualifiers: Pharyngitis/tonsillitis etiology: unspecified etiology Qualified Code(s): J02.9 - Acute pharyngitis, unspecified - Discharge Information Prescriptions: Omeprazole 20 mg PO DAILY 30 Days #30 tablet. Instructions: Esophagitis Referrals: Deondre Nuno MD [Primary Care Provider] - Forms: ED Department Discharge Additional Instructions: The following information is given to patients seen in the emergency department who are being discharged to home. This information is to outline your options for follow-up care. We provide all patients seen in our emergency department with a follow-up referral. The need for follow-up, as well as the timing and circumstances, are variable depending upon the specifics of your emergency department visit. If you don't have a primary care physician on staff, we will provide you with a referral. We always advise you to contact your personal physician following an emergency department visit to inform them of the circumstance of the visit and for follow-up with them and/or the need for any referrals to a consulting specialist. The emergency department will also refer you to a specialist when appropriate. This referral assures that you have the opportunity for follow-up care with a specialist. All of these measure are taken in an effort to provide you with optimal care, which includes your follow-up. Under all circumstances we always encourage you to contact your private physician who remains a resource for coordinating your care. When calling for follow-up care, please make the office aware that this follow-up is from your recent emergency room visit. If for any reason you are refused follow-up, please contact the [facility] Emergency Department at and asked to speak to the emergency department charge nurse. [facility] [address] [place] [id number] [facility] [address] [place] [id number] Thank you for choosing the [facility] emergency department in [place] for your medical needs today. It was a pleasure caring for you. Today you were seen in the emergency department for sore throat, shortness of breathe, and possible allergic reaction. 1. You were evaluated today on an emergent basis. Your lab work and imagining show no immediate findings. I would like you to follow up with general surgeon for the inflammatory changes of the esophagus (as we discussed). Take the Omeprazole as directed. Follow up with [facility] for continued symptoms/management. 2. You can alternate Tylenol and ibuprofen as needed for pain and fever ma nagement. 3. If your symptoms should worsen, new symptoms develop or any of the signs and symptoms we discussed should arise please return to the emergency room or call 911 (if needed). Sepsis Event Note (ED) - Focused Exam Vital Signs: Vital Signs Temp Pulse Resp BP Pulse Ox 07/18/20 15:52 108 H 18 129/91 H 96 07/18/20 15:08 98.9 F 130 H 19 138/91 H 95 - My Orders Last 24 Hours: My Active Orders 07/18/20 15:13 EKG Documentation Completion [RC] STAT - Assessment/Plan Last 24 Hours: My Active Orders 07/18/20 15:13 EKG Documentation Completion [RC] STAT
[2020-07-18] MEDS ORDERED: Famotidine 20 MG/2 ML SDV IVPUSH ONE (15:13)
[2020-07-18] MEDS ORDERED: Ondansetron 4 MG/2 ML SDV IVPUSH ONE (15:13)
[2020-07-18] MEDS ORDERED: diphenhydrAMINE 50 MG/ML SDV IVPUSH ONE (15:13)
[2020-07-18] MEDS ORDERED: Sodium Chloride 0.9% 1,000 ML IV ONE (15:13)
--- NOTE | 2020-07-18 15:35 | CR ---
INDICATION: Chest pain TECHNIQUE: Chest 1 view. COMPARISON: Chest x-ray 07/14/2020 FINDINGS: The heart is normal in size. The pulmonary vasculature is within normal limits. The lungs are clear. IMPRESSION: No acute process. Dictated by Patricia Robles MD @ Jul 18 2020 3:32PM Signed by Dr. Patricia Rolbes @ Jul 18 2020 3:34PM
[2020-07-18 15:49] LABS: BLOOD UREA NITROGEN,BUN 24 mg/dL (7.0-18.0); CARBON DIOXIDE,CO2 26.5 mmol/L (21.0-32.0); CHLORIDE,CL 103 mmol/L (98-107); GLUCOSE RANDOM 124 mg/dL (74-106); LIPASE 117 U/L (73-393); SODIUM,NA 139 mmol/L (136-148)
--- NOTE | 2020-07-18 16:00 | PCM.EKG ---
#1 Interpretation EKG Date: 07/18/20 Time: 15:37 Rhythm: NSR Rate (Beats/Min): 105 [place]: Normal P-Wave: Present QRS: Normal ST-T: Normal QT: Normal OK/PQ Interval: 160 Comparison: NA - No Prior EKG EKG Interpretation Comments: no evidence of ischemia
[2020-07-18] MEDS ORDERED: Iopamidol 755 MG/ML 500 ML Multipack Bottle IVPUSH ONE (16:17)
--- NOTE | 2020-07-18 17:02 | CT ---
INDICATION: Nausea and vomiting. TECHNIQUE: CT abdomen and pelvis acquired with 100 mL Isovue 370 IV contrast. COMPARISON: No prior CT of the abdomen and pelvis. FINDINGS: Lower chest: Heart size is within normal limits. No pericardial effusion. There is mild circumferential wall thickening of the distal esophagus, with associated paraesophageal inflammatory changes including a small amount of free fluid. No definite extraluminal air is seen. Mild bibasilar atelectasis. Liver: Normal size and attenuation with no appreciable intrahepatic mass. Spleen: Normal size. Pancreas: No appreciable pancreatic mass or acute inflammatory changes. Gallbladder and bile ducts: No calcified stones are seen within the gallbladder. No gallbladder wall thickening. Mild prominence of intrahepatic bile ducts is nonspecific. The extrahepatic bile ducts are normal in caliber. Kidneys: Normal size. There are multiple small nonobstructing intrarenal calculi. No obstructing urinary tract stones or hydroureteronephrosis. Adrenal glands: No adrenal mass or hemorrhage. GI tract: Distal esophageal findings as noted above. No abnormally dilated small or large bowel to suggest obstruction. Appendix is normal. Vascular structures: Normal caliber abdominal aorta. Lymph nodes: No pathologically enlarged lymph nodes are seen in the abdomen or pelvis. Miscellaneous: No free intraperitoneal air. No free fluid is seen in the abdomen or pelvis. Pelvic Organs: Unremarkable urinary bladder. Prostate is mildly enlarged. Bones: No acute abnormality. Pars defects are seen at L5 with low-grade anterolisthesis at L5-S1. IMPRESSION: 1. In the visualized lower chest, there is mild circumferential wall thickening of the distal esophagus, with associated paraesophageal inflammatory changes including a trace amount of free fluid. Findings likely represent esophagitis. No definite extraluminal air is seen to suggest an esophageal tear/rupture (Boerhaave syndrome). 2. Incidental findings as noted. Dictated by Kunal Schaffer MD @ 07/18/2020 4:58:47 PM Please note that all CT scans at this facility use dose modulation, iterative reconstruction, and/or weight-based dosing when appropriate to reduce radiation dose to as low as reasonably achievable. Dictated by: Kunal Schaffer MD @ 07/18/2020 17:01:12 (Electronically Signed)
--- NOTE | 2020-07-18 17:15 | CT ---
INDICATION: Chest pain. Shortness of breath. Nausea and vomiting. TECHNIQUE: CT chest pulmonary angiogram acquired with 100 mL Isovue 370 IV contrast. COMPARISON: CTPA from 07/14/2020. CT abdomen and pelvis from earlier today. FINDINGS: Pulmonary arteries: Adequate contrast opacification. No filling defects to suggest an acute pulmonary embolus. Remainder of the chest: Normal heart size. No pericardial effusion. Normal caliber thoracic aorta with no thoracic aortic dissection. No appreciable lymphadenopathy. Bibasilar atelectasis. Trace pleural fluid. This is presumably reactive to the findings below. There is abnormal wall thickening of the majority of the esophagus, with associated paraesophageal inflammatory changes including a trace amount of free fluid. No definite extraluminal air is seen to suggest esophageal perforation. Bones: No acute abnormality. Upper abdomen: Please see the CT from earlier today. IMPRESSION: 1. No evidence of an acute pulmonary embolus. 2. As noted on the CT of the abdomen and pelvis, there is abnormal circumferential wall thickening of the esophagus, with associated paraesophageal inflammatory changes including a trace amount of free fluid. No definite extraluminal air is seen to suggest an esophageal tear/perforation. If there is high clinical suspicion for an esophageal tear, consider further assessment with either an esophagram or EGD. Dictated by Kunal Schaffer MD @ 07/18/2020 5:13:10 PM Please note that all CT scans at this facility use dose modulation, iterative reconstruction, and/or weight-based dosing when appropriate to reduce radiation dose to as low as reasonably achievable. Dictated by: Kunal Schaffer MD @ 07/18/2020 17:13:23 (Electronically Signed)
[2020-07-18] MEDS ORDERED: Alum Hydrox/Mag Hydrox/Simeth 15 ML, Metoclopramide 5 MG, Lidocaine 2% 5 ML PO ONE ×3 (17:26)
== END 2020-07-18 17:42 | disposition home or self-care (01) ==
LOC: MW.ED 14:59
DX: K20.90 Esophagitis, unspecified without bleeding (principal); J02.9 Acute pharyngitis, unspecified; I10 Essential (primary) hypertension; F17.200 Nicotine dependence, unspecified, uncomplicated; Z79.899 Other long term (current) drug therapy
CPT/HCPCS: 36415; 71045; 71275; 74177; 80053; 80305; 81001; 83605; 83690; 84443; 84484; 85025; 85379; 87651; 93005; 96361; 96374; 96375; 99285; A9270; J1200; J2405; J3490; J7030; Q9967

== ENCOUNTER 2020-07-21 08:22 | Observation (INO) | payer OTHER ==
--- NOTE | 2020-07-21 08:26 | EDM.PDOC ---
ED HPI GENERAL MEDICAL PROBLEM - General Chief Complaint: Respiratory Problem Stated Complaint: COPD Time Seen by Provider: 07/21/20 08:26 Source of Information: Reports: Patient History Limitations: Reports: No Limitations - History of Present Illness INITIAL COMMENTS - FREE TEXT/NARRATIVE: 44-year-old male past medical history hypertension presents for apparent allergic reaction. Patient notes that he was seen in the emergency department last week and given prednisone and azithromycin. He has been worked up for COPD. He was also given albuterol inhaler. On the last day of his medications he noted development of urticarial rash with itching and sensation of scratchy throat and shortness of breath. He came to the emergency department 3 days ago for concern for allergic reaction. He was given IV Benadryl, fluids, Pepcid. Symptoms did get better but did not completely go away. He notes that symptoms have been worsening ever since and complains of persistent scratchy throat, urticarial rash worse on head and upper torso, arms. He notes mild shortness of breath but denies airway closing sensation. No fevers that he has noted. He does endorse anxiety. His only other medication is losartan which he has been taking for roughly 1 month. - Related Data Allergies Allergy/AdvReac Type Severity Reaction Status Date / Time No Known Allergies Allergy Verified 07/21/20 08:27 Home Meds: Home Meds Albuterol Sulfate [Albuterol Sulfate HFA] 1 puff INH ASDIRECTED 07/14/20 [History] Albuterol Sulfate [Albuterol Sulfate HFA] 8.5 gm INH Q4HR PRN #1 inhaler 07/14/20 [Rx] Fluticasone Propionate [Flonase] 16 gm .XX BID #2 bottle 07/14/20 [Rx] Losartan [Cozaar] 50 mg PO DAILY 07/14/20 [History] Omeprazole 20 mg PO DAILY 30 Days #30 tablet. 07/18/20 [Rx] Past Medical History Cardiovascular History: Reports: Hypertension Genitourinary History: Reports: Renal Calculus - Infectious Disease History Infectious Disease History: Reports: Chicken Pox - Past Surgical History Male Surgical History: Reports: Lithotripsy (ESWL) Social & Family History - Family History Family Medical History: No Pertinent Family History - Caffeine Use Caffeine Use: Reports: Coffee ED ROS GENERAL - Review of Systems Review Of Systems: Comprehensive ROS is negative, except as noted in HPI. ED EXAM, GENERAL - Physical Exam Exam: See Below Exam Limited By: No Limitations General Appearance: Alert, WD/WN, No Apparent Distress Throat/Mouth: Normal Voice, No Airway Compromise, Other (Erythema of oropharynx without enlargement of tonsils, uvula is midline, no airway obstruction) Head: Atraumatic, Normocephalic Neck: Normal Inspection Respiratory/Chest: No Respiratory Distress, Lungs Clear, Normal Breath Sounds, No Accessory Muscle Use Cardiovascular: Normal Peripheral Pulses, Regular Rate, Rhythm Extremities: Normal Inspection Neurological: Alert, Normal Gait Psychiatric: Normal Affect, Normal Mood Skin Exam: Warm, Dry, Intact, Normal Color, Other (Diffuse urticarial rash most often on patient's face, neck, upper torso, arms) #1 Interpretation EKG Date: 07/21/20 Time: 08:44 Rhythm: NSR Rate (Beats/Min): 129 [place]: Normal P-Wave: Present QRS: Normal ST-T: Normal QT: Normal ME/PQ Interval: 145 EKG Interpretation Comments: Sinus tachycardia without ischemic changes Course - Vital Signs Last Recorded V/S: Last Vital Signs Temp 97.6 F 07/21/20 08:29 Pulse 121 H 07/21/20 09:29 Resp 18 07/21/20 09:29 BP 133/94 H 07/21/20 09:29 Pulse Ox 95 07/21/20 09:29 - Orders/Labs/Meds Orders: Active Orders 24 hr Category Date Time Status Cardiac Monitoring [RC] . DIRECTED Care 07/21/20 08:32 Active EKG Documentation Completion [RC] STAT Care 07/21/20 08:32 Active Pulse Oximetry [RC] ASDIRECTED Care 07/21/20 08:32 Active RT Aerosol Therapy [RC] ASDIRECTED Care 07/21/20 08:35 Active CORONAVIRUS COVID-19 TODD [MOLEC] Stat Lab 07/21/20 10:16 Received RPR (SYPHILIS SERO) W/ RFLX [REF] Stat Lab 07/21/20 10:59 Ordered Sodium Chloride 0.9% [Saline Flush] Med 07/21/20 08:32 Active 10 ml FLUSH ASDIRECTED PRN Sodium Chloride 0.9% [Saline Flush] Med 07/21/20 08:32 Active 2.5 ml FLUSH ASDIRECTED PRN Saline Lock Insert [OM.PC] Stat Oth 07/21/20 08:32 Ordered Medication Orders Sodium Chloride (Sodium Chloride 0.9% 10 Ml Syringe) 10 ml FLUSH ASDIRECTED PRN PRN Reason: Keep Vein Open Last Admin: 07/21/20 08:42 Dose: 10 ml Documented by: [id number] Sodium Chloride (Sodium Chloride 0.9% 2.5 Ml Syringe) 2.5 ml FLUSH ASDIRECTED PRN PRN Reason: Keep Vein Open Last Admin: 07/21/20 08:42 Dose: 2.5 ml Documented by: [id number] Labs: Laboratory Tests 07/21/20 07/21/20 07/21/20 Range/Units 08:38 08:38 10:21 WBC 17.69 H (4.0-11.0) K/uL RBC 5.27 (4.50-5.90) M/uL Hgb 16.8 (13.0-17.0) g/dL Hct 49.5 (38.0-50.0) % MCV 93.9 (80.0-98.0) fL MCH 31.9 (27.0-32.0) pg MCHC 33.9 (31.0-37.0) g/dL RDW Std Deviation 43.7 (28.0-62.0) fl RDW Coeff of Mandi 13 (11.0-15.0) % Plt Count 299 (150-400) K/uL MPV 10.20 (7.40-12.00) fL Neut % (Auto) 87.7 H (48.0-80.0) % Lymph % (Auto) 6.7 L (16.0-40.0) % [place] % (Auto) 5.0 (0.0-15.0) % Eos % (Auto) 0.5 (0.0-7.0) % Baso % (Auto) 0.1 (0.0-1.5) % Neut # (Auto) 15.5 H (1.4-5.7) K/uL Lymph # (Auto) 1.2 (0.6-2.4) K/uL [place] # (Auto) 0.9 H (0.0-0.8) K/uL Eos # (Auto) 0.1 (0.0-0.7) K/uL Baso # (Auto) 0.0 (0.0-0.1) K/uL Nucleated RBC % 0.0 /100WBC Nucleated RBCs # 0 K/uL Sodium 136 (136-148) mmol/L Potassium 3.5 (3.5-5.1) mmol/L Chloride 101 (98-107) mmol/L Carbon Dioxide 27.0 (21.0-32.0) mmol/L BUN 18 (7.0-18.0) mg/dL Creatinine 1.1 (0.8-1.3) mg/dL Est Cr Clr Drug Dosing 77.33 mL/min Estimated GFR (MDRD) > 60.0 ml/min Glucose 122 H (74-106) mg/dL Calcium 8.5 (8.5-10.1) mg/dL Total Bilirubin 0.8 (0.2-1.0) mg/dL AST 20 (15-37) IU/L ALT 43 (14-63) IU/L Alkaline Phosphatase 58 (46-116) U/L C-Reactive Protein 1.20 H (0.00-0.90) mg/dL Total Protein 6.8 (6.4-8.2) g/dL Albumin 3.5 (3.4-5.0) g/dL Globulin 3.3 (2.6-4.0) g/dL Albumin/Globulin Ratio 1.1 (0.9-1.6) Urine Color YELLOW Urine Appearance CLEAR Urine pH 6.0 (5.0-8.0) Ur Specific [place] 1.025 (1.001-1.035) Urine Protein NEGATIVE (NEGATIVE) mg/dL Urine Glucose (UA) NEGATIVE (NEGATIVE) mg/dL Urine Ketones NEGATIVE (NEGATIVE) mg/dL Urine Occult Blood MODERATE H (NEGATIVE) Urine Nitrite NEGATIVE (NEGATIVE) Urine Bilirubin NEGATIVE (NEGATIVE) Urine Urobilinogen 0.2 (<2.0) EU/dL Ur Leukocyte Esterase NEGATIVE (NEGATIVE) Urine RBC 8-12 (0-2/HPF) Urine WBC 0- (0-5/HPF) Ur Epithelial Cells RARE (NONE-FEW) Urine Bacteria FEW (NEGATIVE) Urine Mucus LIGHT (NONE-MOD) Meds: Medications Generic Name Dose Route Start Last Admin Trade Name Freq PRN Reason Stop Dose Admin Sodium Chloride 10 ml 07/21/20 08:32 07/21/20 08:42 Sodium Chloride 0.9% 10 Ml Syringe FLUSH 10 ml ASDIRECTED PRN Administration Keep Vein Open Sodium Chloride 2.5 ml 07/21/20 08:32 07/21/20 08:42 Sodium Chloride 0.9% 2.5 Ml Syringe FLUSH 2.5 ml ASDIRECTED PRN Administration Keep Vein Open Discontinued Medications Generic Name Dose Route Start Last Admin Trade Name Freq PRN Reason Stop Dose Admin Albuterol/Ipratropium 3 ml 07/21/20 08:34 07/21/20 08:41 Albuterol/Ipratropium 3.0-0.5 Mg/3 Ml Neb Soln NEB 07/21/20 08:35 3 ml ONETIME ONE Administration Diphenhydramine HCl 50 mg 07/21/20 08:34 07/21/20 08:41 Diphenhydramine 50 Mg/Ml Sdv IVPUSH 07/21/20 08:35 50 mg ONETIME ONE Administration Famotidine 40 mg 07/21/20 08:34 07/21/20 08:41 Famotidine 20 Mg/2 Ml Sdv IVPUSH 07/21/20 08:35 40 mg ONETIME ONE Administration Sodium Chloride 1,000 mls @ 999 mls/hr 07/21/20 08:32 07/21/20 08:42 Normal Saline IV 07/21/20 09:32 999 mls/hr .Bolus ONE Administration Sodium Chloride 1,000 mls @ 999 mls/hr 07/21/20 08:34 07/21/20 08:42 Normal Saline IV 07/21/20 09:34 999 mls/hr .Bolus ONE Administration Lidocaine HCl 20 ml 07/21/20 08:41 07/21/20 08:46 Lidocaine 2% Viscous Solution 100 Ml Bottle PO 07/21/20 08:42 Not Given ONETIME ONE Lidocaine HCl 15 ml 07/21/20 08:43 07/21/20 08:46 Lidocaine 2% Viscous Solution 15 Ml Cup PO 07/21/20 08:44 15 ml ONETIME ONE Administration Methylprednisolone Sodium Succinate 125 mg 07/21/20 08:34 07/21/20 08:41 Methylprednisolone Sodium Succinate 125 Mg/2 Ml Sdv IVPUSH 07/21/20 08:35 125 mg ONETIME ONE Administration - Re-Assessments/Exams Free Text/Narrative Re-Assessment/Exam: 07/21/20 08:43 Patient symptoms are consistent with an allergic reaction. Will give methylprednisolone, Pepcid, Benadryl, IV fluid bolus. Will give DuoNeb as he does have mild wheezing. He is being worked up for COPD. If patient responds well to medications I will discharge him with a higher dose longer course of tapering prednisone. Patient will need to be followed up by [facility] bag sewer to help elucidate the underlying cause of his recurrent allergic reaction. I will recommend that patient discontinue losartan and we will start him on a different antihypertensive in case this is the cause of symptoms. I also advised patient not take azithromycin again until cleared by bur[facility] bag sewer. 07/21/20 10:59 Patient's symptoms have gotten worse after treatment. His tachycardia is persistent. I am uncertain of the cause of his symptoms. Given the diagnostic uncertainty I reached out to the hospitalist for observation admitted and he agrees to come see the patient and admit for observation. Differential includes viral exanthem versus allergic reaction versus autoimmune condition. He had strep testing 3 days ago which was negative so will defer. We will do a send out RPR to rule out syphilis. Departure - Departure Time of Disposition: 11:01 Disposition: Admitted As Inpatient 66 Condition: Fair Clinical Impression: Rash, Tachycardia Joint pain Qualifiers: Joint pain location: unspecified Qualified Code(s): M25.50 - Pain in unspecified joint - Discharge Information Referrals: Deondre Nuno MD [Primary Care Provider] - Forms: ED Department Discharge Sepsis Event Note (ED) - Focused Exam Vital Signs: Vital Signs Temp Pulse Resp BP Pulse Ox 07/21/20 09:29 121 H 18 133/94 H 95 07/21/20 09:14 127 H 18 140/90 96 07/21/20 08:59 126 H 18 130/90 97 07/21/20 08:29 97.6 F 136 H 22 H 121/88 97 - My Orders Last 24 Hours: My Active Orders 07/21/20 08:32 Cardiac Monitoring [RC] . DIRECTED EKG Documentation Completion [RC] STAT Pulse Oximetry [RC] ASDIRECTED Sodium Chloride 0.9% [Saline Flush] 10 ml FLUSH ASDIRECTED PRN Sodium Chloride 0.9% [Saline Flush] 2.5 ml FLUSH ASDIRECTED PRN Saline Lock Insert [OM.PC] Stat 07/21/20 08:35 RT Aerosol Therapy [RC] ASDIRECTED 07/21/20 10:16 CORONAVIRUS COVID-19 TODD [MOLEC] Stat 07/21/20 10:59 RPR (SYPHILIS SERO) W/ RFLX [REF] Stat - Assessment/Plan Last 24 Hours: My Active Orders 07/21/20 08:32 Cardiac Monitoring [RC] . DIRECTED EKG Documentation Completion [RC] STAT Pulse Oximetry [RC] ASDIRECTED Sodium Chloride 0.9% [Saline Flush] 10 ml FLUSH ASDIRECTED PRN Sodium Chloride 0.9% [Saline Flush] 2.5 ml FLUSH ASDIRECTED PRN Saline Lock Insert [OM.PC] Stat 07/21/20 08:35 RT Aerosol Therapy [RC] ASDIRECTED 07/21/20 10:16 CORONAVIRUS COVID-19 TODD [MOLEC] Stat 07/21/20 10:59 RPR (SYPHILIS SERO) W/ RFLX [REF] Stat
[2020-07-21] MEDS ORDERED: Sodium Chloride 0.9% 1,000 ML IV ONE ×2 (08:32→08:34)
[2020-07-21] MEDS ORDERED: Sodium Chloride 0.9% 10 ML Syringe FLUSH PRN (08:32)
[2020-07-21] MEDS ORDERED: Sodium Chloride 0.9% 2.5 ML Syringe FLUSH PRN (08:32)
[2020-07-21] MEDS ORDERED: Famotidine 20 MG/2 ML SDV IVPUSH ONE (08:34)
[2020-07-21] MEDS ORDERED: diphenhydrAMINE 50 MG/ML SDV IVPUSH ONE (08:34)
[2020-07-21] MEDS ORDERED: Albuterol/Ipratropium 3.0-0.5 MG/3 ML Neb Soln NEB ONE (08:34)
[2020-07-21] MEDS ORDERED: methylPREDNISolone Sodium Succinate 125 MG/2 ML SDV IVPUSH ONE (08:34)
[2020-07-21] MEDS ORDERED: Lidocaine 2% Viscous Solution 100 ML Bottle PO ONE (08:41)
[2020-07-21] MEDS ORDERED: Lidocaine 2% Viscous Solution 15 ML Cup PO ONE (08:43)
[2020-07-21 09:15] LABS: BLOOD UREA NITROGEN,BUN 18 mg/dL (7.0-18.0); CHLORIDE,CL 101 mmol/L (98-107); GLUCOSE RANDOM 122 mg/dL (74-106); POTASSIUM,K 3.5 mmol/L (3.5-5.1); SODIUM,NA 136 mmol/L (136-148)
--- NOTE | 2020-07-21 09:36 | CR ---
INDICATION: Shortness of breath. TECHNIQUE: Single view. COMPARISON: 07/18/2020. FINDINGS: Heart size is normal and stable. Lungs are free of infiltrate. No pulmonary edema is seen. No significant infiltrate is seen. IMPRESSION: Stable chest x-ray. No significant infiltrate or pulmonary edema is seen. Dictated by Eligio Martin MD @ Jul 21 2020 9:35AM Signed by Dr. Eliigo Martin @ Jul 21 2020 9:36AM
--- NOTE | 2020-07-21 12:31 | PCM.HP.2 ---
H&P History of Present Illness - General Date of Service: 07/21/20 Admit Problem/Dx: Admission Diagnosis/Problem Admission Diagnosis/Problem Tachycardia - History of Present Illness Initial Comments - Free Text/Narative: 44 yo male who presents to the ED today with a complaint of rash. Patient had been followed by Dr. Nuno for hypertension. He was started on Losartan for hypertenison. He was also know to have tachycardia which hs been unexplained. Patient is a smoker and had been short of breath last week. He was started on Azithromycin, albuterol and prednisone. On the last day of his Azihtromycin he developed a raised macular papular rash on his body extremities and face. PAtient also reported sore throat and lip swelling. He was seen in for these symptoms of 07/17/20. CT scan of his C/A/P was negative for PE but showed distal esophageal thinking and stranding suggestive of esophagitis. He was treated with pepcid, benadryl and zofran and discharged home. He presents to day with complaints of worsening rash, and swelling of his eyelids, lips and tongue. He denies any shortness of breath, difficulty breathing or eating. He denies any chest pain, abdominal pain, fever, blood in stool, or diarrhea. - Related Data Allergies/Adverse Reactions: Allergies Allergy/AdvReac Type Severity Reaction Status Date / Time No Known Allergies Allergy Verified 07/22/20 06:29 Home Medications: Home Meds RX: Albuterol Sulfate [Albuterol Sulfate HFA] 1 puff INH ASDIRECTED 07/14/20 [History] RX: Albuterol Sulfate [Albuterol Sulfate HFA] 8.5 gm INH Q4HR PRN #1 inhaler 07/14/20 [Rx] RX: Fluticasone Propionate [Flonase] 16 gm .XX BID #2 bottle 07/14/20 [Rx] RX: Omeprazole 20 mg PO DAILY 30 Days #30 tablet. 07/18/20 [Rx] EPINEPHrine [Epinephrine] 0.3 mg IJ ONETIME PRN #2 auto.injct 07/22/20 [Rx] Loratadine [Claritin] 10 mg PO BID #60 tab 07/22/20 [Rx] Past Medical History Cardiovascular History: Reports: Hypertension Respiratory History: Reports: COPD Gastrointestinal History: Reports: GERD Genitourinary History: Reports: Renal Calculus - Infectious Disease History Infectious Disease History: Reports: Chicken Pox - Past Surgical History Male Surgical History: Reports: Lithotripsy (ESWL) Social & Family History - Family History Family Medical History: No Pertinent Family History - Tobacco Use Tobacco Use Status *Q: Unknown Ever Used Tobacco - Caffeine Use Caffeine Use: Reports: None - Recreational Drug Use Recreational Drug Use: No H&P Review of Systems - Review of Systems: Review Of Systems: Comprehensive ROS is negative, except as noted in HPI. Exam - Exam Exam: See Below - Vital Signs Vital Signs: Last Vital Signs Temp 36.4 C 07/21/20 08:29 Pulse 116 H 07/21/20 12:08 Resp 17 07/21/20 12:08 BP 126/83 07/21/20 12:08 Pulse Ox 98 07/21/20 12:08 Weight: 72.575 kg - Exam General: Alert, Oriented HEENT: Conjunctiva Clear, Mucosa Moist & [place], Other (posterior pharynx erythematous, no edema noted) Neck: Supple Lungs: Clear to Auscultation, Normal Respiratory Effort Cardiovascular: Regular Rhythm, Tachycardia GI/Abdominal Exam: Normal Bowel Sounds, Soft, Non-Tender Extremities: Non-Tender, No Pedal Edema Skin: Other (raised red macual papular rash on head hands, arms, legs and trunk) - Patient Data Lab Results Last 24 hrs: Laboratory Results - last 24 hr 07/21/20 07/21/20 07/21/20 Range/Units 08:38 08:38 10:16 WBC 17.69 H (4.0-11.0) K/uL RBC 5.27 (4.50-5.90) M/uL Hgb 16.8 (13.0-17.0) g/dL Hct 49.5 (38.0-50.0) % MCV 93.9 (80.0-98.0) fL MCH 31.9 (27.0-32.0) pg MCHC 33.9 (31.0-37.0) g/dL RDW Std Deviation 43.7 (28.0-62.0) fl RDW Coeff of Mandi 13 (11.0-15.0) % Plt Count 299 (150-400) K/uL MPV 10.20 (7.40-12.00) fL Neut % (Auto) 87.7 H (48.0-80.0) % Lymph % (Auto) 6.7 L (16.0-40.0) % [place] % (Auto) 5.0 (0.0-15.0) % Eos % (Auto) 0.5 (0.0-7.0) % Baso % (Auto) 0.1 (0.0-1.5) % Neut # (Auto) 15.5 H (1.4-5.7) K/uL Lymph # (Auto) 1.2 (0.6-2.4) K/uL [place] # (Auto) 0.9 H (0.0-0.8) K/uL Eos # (Auto) 0.1 (0.0-0.7) K/uL Baso # (Auto) 0.0 (0.0-0.1) K/uL Nucleated RBC % 0.0 /100WBC Nucleated RBCs # 0 K/uL Sodium 136 (136-148) mmol/L Potassium 3.5 (3.5-5.1) mmol/L Chloride 101 (98-107) mmol/L Carbon Dioxide 27.0 (21.0-32.0) mmol/L BUN 18 (7.0-18.0) mg/dL Creatinine 1.1 (0.8-1.3) mg/dL Est Cr Clr Drug Dosing 77.33 mL/min Estimated GFR (MDRD) > 60.0 ml/min Glucose 122 H (74-106) mg/dL Calcium 8.5 (8.5-10.1) mg/dL Total Bilirubin 0.8 (0.2-1.0) mg/dL AST 20 (15-37) IU/L ALT 43 (14-63) IU/L Alkaline Phosphatase 58 (46-116) U/L C-Reactive Protein 1.20 H (0.00-0.90) mg/dL Total Protein 6.8 (6.4-8.2) g/dL Albumin 3.5 (3.4-5.0) g/dL Globulin 3.3 (2.6-4.0) g/dL Albumin/Globulin Ratio 1.1 (0.9-1.6) Urine Color Urine Appearance Urine pH (5.0-8.0) Ur Specific [place] (1.001-1.035) Urine Protein (NEGATIVE) mg/dL Urine Glucose (UA) (NEGATIVE) mg/dL Urine Ketones (NEGATIVE) mg/dL Urine Occult Blood (NEGATIVE) Urine Nitrite (NEGATIVE) Urine Bilirubin (NEGATIVE) Urine Urobilinogen (<2.0) EU/dL Ur Leukocyte Esterase (NEGATIVE) Urine RBC (0-2/HPF) Urine WBC (0-5/HPF) Ur Epithelial Cells (NONE-FEW) Urine Bacteria (NEGATIVE) Urine Mucus (NONE-MOD) SARS-CoV-2 RNA (TODD) NEGATIVE (NEGATIVE) 07/21/20 Range/Units 10:21 WBC (4.0-11.0) K/uL RBC (4.50-5.90) M/uL Hgb (13.0-17.0) g/dL Hct (38.0-50.0) % MCV (80.0-98.0) fL MCH (27.0-32.0) pg MCHC (31.0-37.0) g/dL RDW Std Deviation (28.0-62.0) fl RDW Coeff of Mandi (11.0-15.0) % Plt Count (150-400) K/uL MPV (7.40-12.00) fL Neut % (Auto) (48.0-80.0) % Lymph % (Auto) (16.0-40.0) % [place] % (Auto) (0.0-15.0) % Eos % (Auto) (0.0-7.0) % Baso % (Auto) (0.0-1.5) % Neut # (Auto) (1.4-5.7) K/uL Lymph # (Auto) (0.6-2.4) K/uL [place] # (Auto) (0.0-0.8) K/uL Eos # (Auto) (0.0-0.7) K/uL Baso # (Auto) (0.0-0.1) K/uL Nucleated RBC % /100WBC Nucleated RBCs # K/uL Sodium (136-148) mmol/L Potassium (3.5-5.1) mmol/L Chloride (98-107) mmol/L Carbon Dioxide (21.0-32.0) mmol/L BUN (7.0-18.0) mg/dL Creatinine (0.8-1.3) mg/dL Est Cr Clr Drug Dosing mL/min Estimated GFR (MDRD) ml/min Glucose (74-106) mg/dL Calcium (8.5-10.1) mg/dL Total Bilirubin (0.2-1.0) mg/dL AST (15-37) IU/L ALT (14-63) IU/L Alkaline Phosphatase (46-116) U/L C-Reactive Protein (0.00-0.90) mg/dL Total Protein (6.4-8.2) g/dL Albumin (3.4-5.0) g/dL Globulin (2.6-4.0) g/dL Albumin/Globulin Ratio (0.9-1.6) Urine Color YELLOW Urine Appearance CLEAR Urine pH 6.0 (5.0-8.0) Ur Specific [place] 1.025 (1.001-1.035) Urine Protein NEGATIVE (NEGATIVE) mg/dL Urine Glucose (UA) NEGATIVE (NEGATIVE) mg/dL Urine Ketones NEGATIVE (NEGATIVE) mg/dL Urine Occult Blood MODERATE H (NEGATIVE) Urine Nitrite NEGATIVE (NEGATIVE) Urine Bilirubin NEGATIVE (NEGATIVE) Urine Urobilinogen 0.2 (<2.0) EU/dL Ur Leukocyte Esterase NEGATIVE (NEGATIVE) Urine RBC 8-12 (0-2/HPF) Urine WBC 0- (0-5/HPF) Ur Epithelial Cells RARE (NONE-FEW) Urine Bacteria FEW (NEGATIVE) Urine Mucus LIGHT (NONE-MOD) SARS-CoV-2 RNA (TODD) (NEGATIVE) Result Diagrams: 07/22/20 04:53 07/22/20 04:53 Sepsis Event Note - Evaluation Sepsis Screening Result: Possible Sepsis Risk - Focused Exam Vital Signs: Vital Signs Temp Pulse Resp BP Pulse Ox 07/21/20 12:08 116 H 17 126/83 98 07/21/20 11:14 121 H 17 142/87 H 97 07/21/20 10:44 124 H 17 135/86 93 L 07/21/20 09:29 121 H 18 133/94 H 95 07/21/20 09:14 127 H 18 140/90 96 07/21/20 08:59 126 H 18 130/90 97 07/21/20 08:29 36.4 C 136 H 22 H 121/88 97 Problem List Initiated/Reviewed/Updated: Yes Orders Last 24hrs: Active Orders 24 hr Category Date Time Status Patient Status [ADT] Routine ADT 07/21/20 11:02 Active Antiembolic Devices [RC] PER UNIT ROUTINE Care 07/21/20 12:25 Ordered Cardiac Monitoring [RC] . DIRECTED Care 07/21/20 08:32 Active EKG Documentation Completion [RC] STAT Care 07/21/20 08:32 Active Overnight Pulse Oximetry [RC] Click to Edit Care 07/21/20 12:27 Ordered Oxygen Therapy [RC] PRN Care 07/21/20 12:25 Ordered Pulse Oximetry [RC] ASDIRECTED Care 07/21/20 08:32 Active RT Aerosol Therapy [RC] ASDIRECTED Care 07/21/20 08:35 Active Telemetry Monitoring [Cardiac Monitoring] [RC] Q8H Care 07/21/20 10:40 Active Up ad Sandra [RC] ASDIRECTED Care 07/21/20 12:25 Ordered VTE/DVT Education [RC] PER UNIT ROUTINE Care 07/21/20 12:25 Ordered Vital Signs [RC] Q4H Care 07/21/20 12:25 Ordered Regular Diet [DIET] Diet 07/21/20 Breakfast Ordered CBC WITH AUTO DIFF [HEME] AM Lab 07/22/20 05:11 Ordered COMPREHENSIVE METABOLIC PN,CMP [CHEM] AM Lab 07/22/20 05:11 Ordered RPR (SYPHILIS SERO) W/ RFLX [REF] Stat Lab 07/21/20 08:38 Received UA RFX ANGELICA AND CULT IF INDIC [URIN] Stat Lab 07/21/20 10:23 Ordered UA W/ANGELICA RFLX IF INDICATED [URIN] Stat Lab 07/21/20 10:23 Ordered UA W/MICROSCOPIC [URIN] Stat Lab 07/21/20 10:23 Ordered Sodium Chloride 0.9% @ 125 MLS/HR (1000ml) Med 07/21/20 12:30 Ordered Sodium Chloride 0.9% [Normal Saline] 1,000 ml IV ASDIRECTED Sodium Chloride 0.9% [Saline Flush] Med 07/21/20 08:32 Active 10 ml FLUSH ASDIRECTED PRN Sodium Chloride 0.9% [Saline Flush] Med 07/21/20 08:32 Active 2.5 ml FLUSH ASDIRECTED PRN diphenhydrAMINE [Benadryl] Med 07/21/20 15:00 Ordered 50 mg IVPUSH Q6H Pulse Oximetry Continuous Monitoring [OM.PC] Routine Oth 07/21/20 12:27 Ordere d Saline Lock Insert [OM.PC] Stat Oth 07/21/20 08:32 Ordered Sequential Compression Device [OM.PC] Per Unit Routine Oth 07/21/20 12:25 Ordered Resuscitation Status Routine Resus Stat 07/21/20 12:25 Ordered Medication Orders Diphenhydramine HCl (Diphenhydramine 50 Mg/Ml Sdv) 50 mg IVPUSH Q6H JONATHAN Sodium Chloride (Normal Saline) 1,000 mls @ 125 mls/hr IV ASDIRECTED JONATHAN Sodium Chloride (Sodium Chloride 0.9% 10 Ml Syringe) 10 ml FLUSH ASDIRECTED PRN PRN Reason: Keep Vein Open Last Admin: 07/21/20 08:42 Dose: 10 ml Documented by: [id number] Sodium Chloride (Sodium Chloride 0.9% 2.5 Ml Syringe) 2.5 ml FLUSH ASDIRECTED PRN PRN Reason: Keep Vein Open Last Admin: 07/21/20 08:42 Dose: 2.5 ml Documented by: [id number] Assessment/Plan Comment:: 44 yo male who presented with complaints of rash, and lip swelling. Rash looks like hives. I suspect patient is likely having an allergic reaction. Patient has been treated with solumedrol and Benadryl. We will continue antihistamine treatment. We will continue PPI for treatment of his esophagitis. Patient will likely eventually need and EGD. We will also hold losartan as it also know to cause angioedema.
[2020-07-21] MEDS: Sodium Chloride 0.9% 1,000 ML IV SCH ×2 (14:12→22:55)
[2020-07-21] MEDS: diphenhydrAMINE 50 MG/ML SDV IVPUSH SCH ×2 (14:13→21:19)
[2020-07-21] MEDS ORDERED: Pantoprazole 40 MG in Sodium Chloride 0.9% 10 ML IV SCH (20:00)
[2020-07-22] MEDS: diphenhydrAMINE 50 MG/ML SDV IVPUSH SCH ×2 (03:39→09:06)
[2020-07-22 05:49] LABS: BLOOD UREA NITROGEN,BUN 13 mg/dL (7.0-18.0); CARBON DIOXIDE,CO2 27.8 mmol/L (21.0-32.0); CHLORIDE,CL 106 mmol/L (98-107); GLUCOSE RANDOM 151 mg/dL (74-106); POTASSIUM,K 4.2 mmol/L (3.5-5.1); SODIUM,NA 141 mmol/L (136-148)
[2020-07-22] MEDS: Sodium Chloride 0.9% 1,000 ML IV SCH (06:44)
--- NOTE | 2020-07-22 11:19 | PCM.DCSUM1 ---
Discharge Summary - Hospital Course HPI Initial Comments: 44 yo male who presents to the ED today with a complaint of rash. Patient had been followed by Dr. Nuno for hypertension. He was started on Losartan for hypertenison. He was also know to have tachycardia which hs been unexplained. Patient is a smoker and had been short of breath last week. He was started on Azithromycin, albuterol and prednisone. On the last day of his Azihtromycin he developed a raised macular papular rash on his body extremities and face. PAtient also reported sore throat and lip swelling. He was seen in for these symptoms of 07/17/20. CT scan of his C/A/P was negative for PE but showed distal esophageal thinking and stranding suggestive of esophagitis. He was treated with pepcid, benadryl and zofran and discharged home. He presents to day with complaints of worsening rash, and swelling of his eyelids, lips and tongue. He denies any shortness of breath, difficulty breathing or eating. He denies any chest pain, abdominal pain, fever, blood in stool, or diarrhea. - Discharge Data Discharge Date: 07/22/20 Discharge Disposition: Home, Self-Care 01 Condition: Stable - Referral to Home Health Primary Care Physician: Deondre Nuno MD - Patient Summary/Data Hospital Course: Patient was treated with Benadryl and hydrated with IV fluids. His rash has resolved overnight. His heart rate has normalized. He is eager for discharge. I suspect patient may have developed allergy with hives from Azithromycin. I can not exclude angioedema from losartan so have instructed him to discontinue this medication for now. I have instructed him to avoid Azithromycin. He is to take loratadine 10 mg twice a day for his urticaria. Due to the uncertainty of possible repeat exposure and the severity of his symptoms with possible risk of anaphylaxis I have prescribed him epi auto-injectors. I have instructed him on the symptoms of anaphylaxis and the use of the epi auto injectors. I have made him a referral to an Casualty Claim Adjuster. Patient was instructed to follow up with Dr. Nuno regarding his hypertension and CT scan results of esophagitis. - Discharge Plan Prescriptions/Med Rec: Loratadine [Claritin] 10 mg PO BID #60 tab EPINEPHrine [Epinephrine] 0.3 mg IJ ONETIME PRN #2 auto.injct PRN Reason: anaphylaxis Home Medications: Home Meds RX: Albuterol Sulfate [Albuterol Sulfate HFA] 1 puff INH ASDIRECTED 07/14/20 [History] RX: Albuterol Sulfate [Albuterol Sulfate HFA] 8.5 gm INH Q4HR PRN #1 inhaler 07/14/20 [Rx] RX: Fluticasone Propionate [Flonase] 16 gm .XX BID #2 bottle 07/14/20 [Rx] RX: Omeprazole 20 mg PO DAILY 30 Days #30 tablet.dr 07/18/20 [Rx] EPINEPHrine [Epinephrine] 0.3 mg IJ ONETIME PRN #2 auto.injct 07/22/20 [Rx] Loratadine [Claritin] 10 mg PO BID #60 tab 07/22/20 [Rx] Forms: ED Department Discharge Referrals: Deondre Nuno MD [Primary Care Provider] - 07/30/20 9:00 am - Discharge Summary/Plan Comment DC Time >30 min.: No - Patient Data Vitals - Most Recent: Last Vital Signs Temp 36.7 C 07/22/20 07:25 Pulse 85 07/22/20 07:25 Resp 15 07/22/20 07:25 BP 132/83 07/22/20 07:25 Pulse Ox 96 07/22/20 09:02 Weight - Most Recent: 74.956 kg I&O - Last 24 hours: Intake & Output 07/21/20 07/22/20 07/22/20 22:59 06:59 14:59 Intake Total 400 850 880 Output Total 600 1450 Balance -200 -600 880 Lab Results - Last 24 hrs: Laboratory Results - last 24 hr 07/21/20 07/21/20 07/21/20 Range/Units 08:38 08:38 10:16 WBC (4.0-11.0) K/uL RBC (4.50-5.90) M/uL Hgb (13.0-17.0) g/dL Hct (38.0-50.0) % MCV (80.0-98.0) fL MCH (27.0-32.0) pg MCHC (31.0-37.0) g/dL RDW Std Deviation (28.0-62.0) fl RDW Coeff of Mandi (11.0-15.0) % Plt Count (150-400) K/uL MPV (7.40-12.00) fL Neut % (Auto) (48.0-80.0) % Lymph % (Auto) (16.0-40.0) % Dawes % (Auto) (0.0-15.0) % Eos % (Auto) (0.0-7.0) % Baso % (Auto) (0.0-1.5) % Neut # (Auto) (1.4-5.7) K/uL Lymph # (Auto) (0.6-2.4) K/uL Dawes # (Auto) (0.0-0.8) K/uL Eos # (Auto) (0.0-0.7) K/uL Baso # (Auto) (0.0-0.1) K/uL Nucleated RBC % /100WBC Nucleated RBCs # K/uL Sodium (136-148) mmol/L Potassium (3.5-5.1) mmol/L Chloride (98-107) mmol/L Carbon Dioxide (21.0-32.0) mmol/L BUN (7.0-18.0) mg/dL Creatinine (0.8-1.3) mg/dL Est Cr Clr Drug Dosing mL/min Estimated GFR (MDRD) ml/min Glucose (74-106) mg/dL Calcium (8.5-10.1) mg/dL Total Bilirubin (0.2-1.0) mg/dL AST (15-37) IU/L ALT (14-63) IU/L Alkaline Phosphatase (46-116) U/L Total Protein (6.4-8.2) g/dL Albumin (3.4-5.0) g/dL Globulin (2.6-4.0) g/dL Albumin/Globulin Ratio (0.9-1.6) Urine Color Urine Appearance Urine pH (5.0-8.0) Ur Specific [place] (1.001-1.035) Urine Protein (NEGATIVE) mg/dL Urine Glucose (UA) (NEGATIVE) mg/dL Urine Ketones (NEGATIVE) mg/dL Urine Occult Blood (NEGATIVE) Urine Nitrite (NEGATIVE) Urine Bilirubin (NEGATIVE) Urine Urobilinogen (<2.0) EU/dL Ur Leukocyte Esterase (NEGATIVE) Urine RBC (0-2/HPF) Urine WBC (0-5/HPF) Ur Epithelial Cells (NONE-FEW) Urine Bacteria (NEGATIVE) Urine Mucus (NONE-MOD) Monoscreen NEGATIVE (NEG) HIV 1&2 Ag/Ab, 4th Gen 0.1 (<1.0) INDEX SARS-CoV-2 RNA (TODD) NEGATIVE (NEGATIVE) 07/21/20 07/22/20 07/22/20 Range/Units 10:21 04:53 04:53 WBC 15.51 H (4.0-11.0) K/uL RBC 4.40 L (4.50-5.90) M/uL Hgb 13.6 (13.0-17.0) g/dL Hct 41.5 (38.0-50.0) % MCV 94.3 (80.0-98.0) fL MCH 30.9 (27.0-32.0) pg MCHC 32.8 (31.0-37.0) g/dL RDW Std Deviation 43.4 (28.0-62.0) fl RDW Coeff of Mandi 13 (11.0-15.0) % Plt Count 279 (150-400) K/uL MPV 10.60 (7.40-12.00) fL Neut % (Auto) 90.6 H (48.0-80.0) % Lymph % (Auto) 4.4 L (16.0-40.0) % Dawes % (Auto) 4.9 (0.0-15.0) % Eos % (Auto) 0.1 (0.0-7.0) % Baso % (Auto) 0.0 (0.0-1.5) % Neut # (Auto) 14.1 H (1.4-5.7) K/uL Lymph # (Auto) 0.7 (0.6-2.4) K/uL Dawes # (Auto) 0.8 (0.0-0.8) K/uL Eos # (Auto) 0.0 (0.0-0.7) K/uL Baso # (Auto) 0.0 (0.0-0.1) K/uL Nucleated RBC % 0.0 /100WBC Nucleated RBCs # 0 K/uL Sodium 141 (136-148) mmol/L Potassium 4.2 (3.5-5.1) mmol/L Chloride 106 (98-107) mmol/L Carbon Dioxide 27.8 (21.0-32.0) mmol/L BUN 13 (7.0-18.0) mg/dL Creatinine 1.0 (0.8-1.3) mg/dL Est Cr Clr Drug Dosing 99.94 mL/min Estimated GFR (MDRD) > 60.0 ml/min Glucose 151 H (74-106) mg/dL Calcium 8.4 L (8.5-10.1) mg/dL Total Bilirubin 0.6 (0.2-1.0) mg/dL AST 13 L (15-37) IU/L ALT 33 (14-63) IU/L Alkaline Phosphatase 62 (46-116) U/L Total Protein 6.1 L (6.4-8.2) g/dL Albumin 3.0 L (3.4-5.0) g/dL Globulin 3.1 (2.6-4.0) g/dL Albumin/Globulin Ratio 1.0 (0.9-1.6) Urine Color YELLOW Urine Appearance CLEAR Urine pH 6.0 (5.0-8.0) Ur Specific [place] 1.025 (1.001-1.035) Urine Protein NEGATIVE (NEGATIVE) mg/dL Urine Glucose (UA) NEGATIVE (NEGATIVE) mg/dL Urine Ketones NEGATIVE (NEGATIVE) mg/dL Urine Occult Blood MODERATE H (NEGATIVE) Urine Nitrite NEGATIVE (NEGATIVE) Urine Bilirubin NEGATIVE (NEGATIVE) Urine Urobilinogen 0.2 (<2.0) EU/dL Ur Leukocyte Esterase NEGATIVE (NEGATIVE) Urine RBC 8-12 (0-2/HPF) Urine WBC 0- (0-5/HPF) Ur Epithelial Cells RARE (NONE-FEW) Urine Bacteria FEW (NEGATIVE) Urine Mucus LIGHT (NONE-MOD) Monoscreen (NEG) HIV 1&2 Ag/Ab, 4th Gen (<1.0) INDEX SARS-CoV-2 RNA (TODD) (NEGATIVE) Med Orders - Current: Current Medications Diphenhydramine HCl (Diphenhydramine 50 Mg/Ml Sdv) 50 mg IVPUSH Q6H JONATHAN Last Admin: 07/22/20 09:06 Dose: 50 mg Documented by: Sodium Chloride (Normal Saline) 1,000 mls @ 125 mls/hr IV ASDIRECTED JONATHAN Last Admin: 07/22/20 06:44 Dose: 125 mls/hr Documented by: Pantoprazole Sodium 40 mg/ (Sodium Chloride) 10 mls @ 300 mls/hr IV Q24H [facility] Last Admin: 07/21/20 20:14 Dose: 300 mls/hr Documented by: Sodium Chloride (Sodium Chloride 0.9% 10 Ml Syringe) 10 ml FLUSH ASDIRECTED PRN PRN Reason: Keep Vein Open Last Admin: 07/21/20 08:42 Dose: 10 ml Documented by: Sodium Chloride (Sodium Chloride 0.9% 2.5 Ml Syringe) 2.5 ml FLUSH ASDIRECTED PRN PRN Reason: Keep Vein Open Last Admin: 07/21/20 08:42 Dose: 2.5 ml Documented by: Discontinued Medications Albuterol/Ipratropium (Albuterol/Ipratropium 3.0-0.5 Mg/3 Ml Neb Soln) 3 ml NEB ONETIME ONE Stop: 07/21/20 08:35 Last Admin: 07/21/20 08:41 Dose: 3 ml Documented by: Diphenhydramine HCl (Diphenhydramine 50 Mg/Ml Sdv) 50 mg IVPUSH ONETIME ONE Stop: 07/21/20 08:35 Last Admin: 07/21/20 08:41 Dose: 50 mg Documented by: Famotidine (Famotidine 20 Mg/2 Ml Sdv) 40 mg IVPUSH ONETIME ONE Stop: 07/21/20 08:35 Last Admin: 07/21/20 08:41 Dose: 40 mg Documented by: Sodium Chloride (Normal Saline) 1,000 mls @ 999 mls/hr IV .Bolus ONE Stop: 07/21/20 09:32 Last Admin: 07/21/20 08:42 Dose: 999 mls/hr Documented by: Sodium Chloride (Normal Saline) 1,000 mls @ 999 mls/hr IV .Bolus ONE Stop: 07/21/20 09:34 Last Admin: 07/21/20 08:42 Dose: 999 mls/hr Documented by: Lidocaine HCl (Lidocaine 2% Viscous Solution 100 Ml Bottle) 20 ml PO ONETIME ONE Stop: 07/21/20 08:42 Last Admin: 07/21/20 08:46 Dose: Not Given Documented by: Lidocaine HCl (Lidocaine 2% Viscous Solution 15 Ml Cup) 15 ml PO ONETIME ONE Stop: 07/21/20 08:44 Last Admin: 07/21/20 08:46 Dose: 15 ml Documented by: Methylprednisolone Sodium Succinate (Methylprednisolone Sodium Succinate 125 Mg/2 Ml Sdv) 125 mg IVPUSH ONETIME ONE Stop: 07/21/20 08:35 Last Admin: 07/21/20 08:41 Dose: 125 mg Documented by:
== END 2020-07-22 12:20 | disposition home or self-care (01) ==
LOC: MW.ED 08:22 → MW.MS 11:02
PROVIDERS: ADMIT Internal Medicine; ATTEND Internal Medicine
DX: R21 Rash and other nonspecific skin eruption (principal); K13.0 Diseases of lips; T78.3XXA Angioneurotic edema, initial encounter; R22.0 Localized swelling, mass and lump, head; J44.9 Chronic obstructive pulmonary disease, unspecified; I10 Essential (primary) hypertension; K20.90 Esophagitis, unspecified without bleeding; M25.50 Pain in unspecified joint; F17.200 Nicotine dependence, unspecified, uncomplicated; Z20.822 Contact with and (suspected) exposure to COVID-19; Z87.442 Personal history of urinary calculi; Z98.890 Other specified postprocedural states
CPT/HCPCS: 36415; 71045; 80053; 81001; 85025; 86140; 86308; 86592; 87389; 87635; 93005; 94640; 96374; 96375; 99285; A9270; C9113; J1200; J2930; J3490; J7030; 93010; 99284; J7620-GY; U0002

== ENCOUNTER 2020-07-23 01:28 | Emergency (ER) | payer OTHER ==
[2020-07-23] MEDS ORDERED: Albuterol 0.5% 2.5 MG/0.5 ML Neb Soln NEB STA ×2 (01:50→01:57)
[2020-07-23] MEDS ORDERED: diphenhydrAMINE 50 MG/ML SDV IVPUSH ONE (01:50)
[2020-07-23] MEDS ORDERED: Famotidine 20 MG/2 ML SDV IVPUSH ONE (01:57)
--- NOTE | 2020-07-23 01:59 | EDM.PDOC ---
ED HPI GENERAL MEDICAL PROBLEM - General Chief Complaint: Skin Complaint Stated Complaint: ANAPHYLACTIC SHOCK, ALLERGIC REACTION Time Seen by Provider: 07/23/20 01:41 - History of Present Illness INITIAL COMMENTS - FREE TEXT/NARRATIVE: History of present illness: [] Woke up with a red reticulocyte rash over his trunk extremities and about his face. He had been discharged in the afternoon after an overnight admission for an allergic reaction. The allergic reaction happened after he completed a course of Zithromax and prednisone for bronchitis. Given Benadryl and IV fluids and he responded. He was told to start Claritin. He has not had a chance to start the Claritin and has been taking Benadryl instead. The patient woke up with a recurrence of his rash. He also has a scratchy and sore throat. Review of systems: As per history of present illness and below otherwise all systems reviewed and negative. Past medical history: As per history of present illness and as reviewed below otherwise noncontributory. Surgical history: As per history of present illness and as reviewed below otherwise noncontributory. Social history: No reported history of drug or alcohol abuse. Family history: As per history of present illness and as reviewed below otherwise noncontributory. Physical exam: Constitutional - well developed, well-nourished and in no acute distress HEENT -erythematous posterior pharyngeal soft tissues with normal voice normocephalic, no evidence of trauma - external nose and mouth normal - no mass in neck and no JVD - mucosae moist EYES - full EOM, PERRL, no icterus - no evidence of inflammation, injection, or drainage Respiratory - no respiratory distress, equal bilateral expansion, lungs clear to auscultation and no abnormal lung sounds Cardiovascular - Regular Rhythm with S1 and S2 appreciated and no murmur, gallop or rub. GI - abdomen soft without distension or organomegaly - normal bowel sounds - no guard or rebound Musculoskeletal no gross deformity of long bones or joints - no tenderness, swelling or edema Neurologic - Alert and oriented times four - CN II-XII grossly intact - motor sensory and coordination symmetrically normal Psychiatric - appropriate mood and affect with normal thought content Hematologic - No petechiae or purpura - mucosa appropriate color and sclera not pale - normal nail bed color and refill Integument -see erythematous rash over the face trunk and extremities. No rash or evidence of trauma - normal turgor Diagnostics: [] Therapeutics: [] Impression: [] Plan: [] Definitive disposition and diagnosis as appropriate pending reevaluation and review of above. - Related Data Allergies Allergy/AdvReac Type Severity Reaction Status Date / Time No Known Allergies Allergy Verified 07/23/20 01:33 Home Meds: Home Meds Albuterol Sulfate [Albuterol Sulfate HFA] 1 puff INH ASDIRECTED 07/14/20 [History] Albuterol Sulfate [Albuterol Sulfate HFA] 8.5 gm INH Q4HR PRN #1 inhaler 07/14/20 [Rx] Fluticasone Propionate [Flonase] 16 gm .XX BID #2 bottle 07/14/20 [Rx] Omeprazole 20 mg PO DAILY 30 Days #30 tablet. 07/18/20 [Rx] EPINEPHrine [Epinephrine] 0.3 mg IJ ONETIME PRN #2 auto.injct 07/22/20 [Rx] Loratadine [Claritin] 10 mg PO BID #60 tab 07/22/20 [Rx] predniSONE [Prednisone] 60 mg PO DAILY #21 tablet 07/23/20 [Rx] Past Medical History HEENT History: Reports: None Cardiovascular History: Reports: Hypertension Respiratory History: Reports: Bronchitis, Recurrent, COPD Gastrointestinal History: Reports: GERD Genitourinary History: Reports: Prostate Disorder, Renal Calculus Musculoskeletal History: Reports: Arthritis Neurological History: Reports: None Psychiatric History: Reports: None Endocrine/Metabolic History: Reports: None Insulin Pump Model and Rn Perioperative: None Hematologic History: Reports: None Immunologic History: Reports: None Oncologic (Cancer) History: Reports: None Dermatologic History: Reports: Benign Melanoma - Infectious Disease History Infectious Disease History: Reports: Chicken Pox - Past Surgical History Head Surgeries/Procedures: Reports: None Respiratory Surgical History: Reports: None Male Surgical History: Reports: Lithotripsy (ESWL) Endocrine Surgical History: Reports: None Musculoskeletal Surgical History: Reports: Arthroscopic Procedure Dermatological Surgical History: Reports: Other (See Below) Social & Family History - Family History Family Medical History: No Pertinent Family History - Caffeine Use Caffeine Use: Reports: Coffee - Recreational Drug Use Recreational Drug Use: No ED ROS GENERAL - Review of Systems Review Of Systems: Comprehensive ROS is negative, except as noted in HPI. ED EXAM, SKIN/RASH Exam: See Below Text/Narrative:: My physical exam is in the HPI never Course - Vital Signs Text/Narrative:: 2:55 AM the patient got upset and said he had a sore throat. The patient had no swelling in the soft tissues in the posterior pharynx. Airways patent. The soft tissues are extremely red. I am going to repeat the strep and mono test. 421 patient's airway has improved he has no hoarseness. His throat is improved. Strep and mono were negative. His urticaria is back slightly less red urticaria on his forearms Last Recorded V/S: Last Vital Signs Temp 36.9 C 07/23/20 01:30 Pulse 106 H 07/23/20 02:42 Resp 16 07/23/20 02:42 BP 129/85 07/23/20 02:42 Pulse Ox 96 07/23/20 02:42 - Orders/Labs/Meds Orders: Active Orders 24 hr Category Date Time Status RT Aerosol Therapy [RC] ASDIRECTED Care 07/23/20 01:50 Active RT Aerosol Therapy [RC] ASDIRECTED Care 07/23/20 01:58 Active RT Aerosol Therapy [RC] ASDIRECTED Care 07/23/20 02:01 Active Labs: Laboratory Tests 07/23/20 07/23/20 Range/Units 02:58 03:08 Monoscreen NEGATIVE (NEG) Group A Strep (PCR) NOT DETECTED (NOT DETECT) Meds: Medications Discontinued Medications Generic Name Dose Route Start Last Admin Trade Name Jezq PRN Reason Stop Dose Admin Albuterol 2.5 mg 07/23/20 01:50 07/23/20 02:03 Albuterol 0.5% 2.5 Mg/0.5 Ml Neb Soln NEB 07/23/20 01:51 Not Given STAT STA Albuterol Confirm 07/23/20 01:52 07/23/20 02:03 Albuterol 0.083% 2.5 Mg/3 Ml Neb Soln Administered 07/23/20 01:53 2.5 mg Dose Administration 2.5 mg .ROUTE .STK-MED ONE Albuterol 2.5 mg 07/23/20 01:57 07/23/20 02:03 Albuterol 0.5% 2.5 Mg/0.5 Ml Neb Soln NEB 07/23/20 01:58 Not Given NOW STA Albuterol 2.5 mg 07/23/20 02:01 07/23/20 02:07 Albuterol 0.5% 5 Mg/Ml Neb Soln 20 Ml Bottle NEB 07/23/20 02:02 Not Given NOW STA Benzocaine 1 each 07/23/20 02:58 07/23/20 03:02 Benzocaine 20% Topical [place] [facility] MUCMEM 07/23/20 02:59 1 each ONETIME ONE Administration Diphenhydramine HCl 50 mg 07/23/20 01:50 07/23/20 02:00 Diphenhydramine 50 Mg/Ml Sdv IVPUSH 07/23/20 01:51 50 mg ONETIME ONE Administration Famotidine 20 mg 07/23/20 01:57 07/23/20 02:00 Famotidine 20 Mg/2 Ml Sdv IVPUSH 07/23/20 01:58 20 mg ONETIME ONE Administration Lorazepam 0.5 mg 07/23/20 02:54 07/23/20 03:03 Lorazepam 2 Mg/Ml Sdv IVPUSH 07/23/20 02:55 0.5 mg ONETIME ONE Administration Prednisone 60 mg 07/23/20 02:15 07/23/20 02:20 Prednisone 20 Mg Tab PO 07/23/20 02:16 60 mg ONETIME ONE Administration Departure - Departure Time of Disposition: 04:21 Disposition: Home, Self-Care 01 Condition: Good Clinical Impression: Giant urticaria - Discharge Information Prescriptions: predniSONE [Prednisone] 60 mg PO DAILY #21 tablet Instructions: Hives, [id number] Referrals: Deondre Nuno MD [Primary Care Provider] - Forms: ED Department Discharge Additional Instructions: Benadryl 50 mg 4 times a day [facility] [address] [place] [id number] [address] [address] Barber Elizalde - Chemical Process Project Engineer [facility] [address] [place] [address], [address] [place] [address] The following information is given to patients seen in the emergency department who are being discharged to home. This information is to outline your options for follow-up care. We provide all patients seen in our emergency department with a follow-up referral. The need for follow-up, as well as the timing and circumstances, are variable depending upon the specifics of your emergency department visit. If you don't have a primary care physician on staff, we will provide you with a referral. We always advise you to contact your personal physician following an emergency department visit to inform them of the circumstance of the visit and for follow-up with them and/or the need for any referrals to a consulting specialist. The emergency department will also refer you to a specialist when appropriate. This referral assures that you have the opportunity for follow-up care with a specialist. All of these measure are taken in an effort to provide you with optimal care, which includes your follow-up. Under all circumstances we always encourage you to contact your private physician who remains a resource for coordinating your care. When calling for follow-up care, please make the office aware that this follow-up is from your recent emergency room visit. If for any reason you are refused follow-up, please contact the [facility] Emergency Department at and asked to speak to the emergency department charge nurse. Sepsis Event Note (ED) - Evaluation Sepsis Screening Result: No Definite Risk - Focused Exam Vital Signs: Vital Signs Temp Pulse Resp BP Pulse Ox 07/23/20 02:42 106 H 16 129/85 96 07/23/20 02:05 116 H 16 145/94 H 96 07/23/20 01:30 36.9 C 115 H 18 140/87 97 - My Orders Last 24 Hours: My Active Orders 07/23/20 01:50 RT Aerosol Therapy [RC] ASDIRECTED 07/23/20 01:58 RT Aerosol Therapy [RC] ASDIRECTED 07/23/20 02:01 RT Aerosol Therapy [RC] ASDIRECTED - Assessment/Plan Last 24 Hours: My Active Orders 07/23/20 01:50 RT Aerosol Therapy [RC] ASDIRECTED 07/23/20 01:58 RT Aerosol Therapy [RC] ASDIRECTED 07/23/20 02:01 RT Aerosol Therapy [RC] ASDIRECTED
[2020-07-23] MEDS: Albuterol 0.083% 2.5 MG/3 ML Neb Soln ONE ×2 (02:01→02:03)
[2020-07-23] MEDS: Albuterol 0.5% 5 MG/ML Neb Soln 20 ML Bottle NEB STA ×2 (02:02→02:07)
[2020-07-23] MEDS ORDERED: predniSONE 20 MG Tab PO ONE (02:15)
[2020-07-23] MEDS ORDERED: LORazepam 2 MG/ML SDV IVPUSH ONE (02:54)
[2020-07-23] MEDS ORDERED: Benzocaine 20% Topical Spray UD MUCMEM ONE (02:58)
== END 2020-07-23 04:35 | disposition home or self-care (01) ==
LOC: MW.ED 01:28
DX: T78.3XXA Angioneurotic edema, initial encounter (principal); I10 Essential (primary) hypertension; J44.9 Chronic obstructive pulmonary disease, unspecified; K21.9 Gastro-esophageal reflux disease without esophagitis; Z79.899 Other long term (current) drug therapy
CPT/HCPCS: 36415; 86308; 87651; 96374; 96375; 99283; A9270; J1200; J2060; J3490

== ENCOUNTER 2020-07-25 04:16 | Emergency (ER) | payer OTHER ==
[2020-07-25] MEDS ORDERED: diphenhydrAMINE 50 MG/ML SDV IVPUSH ONE (04:25)
[2020-07-25] MEDS ORDERED: Lactated Ringers 1,000 ML IV ONE (04:25)
[2020-07-25] MEDS ORDERED: methylPREDNISolone Sodium Succinate 125 MG/2 ML SDV IVPUSH ONE (04:25)
[2020-07-25] MEDS ORDERED: Famotidine 20 MG/2 ML SDV IVPUSH ONE (04:25)
[2020-07-25] MEDS ORDERED: Sodium Chloride 0.9% 2.5 ML Syringe FLUSH PRN (04:25)
[2020-07-25] MEDS ORDERED: Sodium Chloride 0.9% 10 ML Syringe FLUSH PRN (04:25)
[2020-07-25] MEDS ORDERED: diphenhydrAMINE 50 MG/ML SDV ONE (04:28)
[2020-07-25] MEDS ORDERED: methylPREDNISolone Sodium Succinate 125 MG/2 ML SDV ONE (04:28)
[2020-07-25] MEDS ORDERED: Famotidine 20 MG/2 ML SDV ONE (04:28)
--- NOTE | 2020-07-25 04:30 | EDM.PDOC ---
<Jimbo Thompson - Last Filed: 07/25/20 06:38> ED HPI GENERAL MEDICAL PROBLEM - General Chief Complaint: Allergic Reaction Stated Complaint: ALLERGIC REACTION Time Seen by Provider: 07/25/20 04:19 Source of Information: Reports: Patient History Limitations: Reports: No Limitations - History of Present Illness INITIAL COMMENTS - FREE TEXT/NARRATIVE: 44-year-old male with history of HTN, COPD, urticaria returns for flareup of his urticaria rash. He was discharged at 5:00 yesterday morning. This evening he woke up feeling nauseous at 11:30 PM and has vomited about 15 times since, with a recurrence of his diffuse painful urticarial rash on his back and his chest. He denies shortness of breath, throat swelling sensation, fever, chills. He was seen here on 07/23 for anaphylaxis, he was prescribed EpiPen but did not fill it due to cost of medication. He has been taking prednisone, benadryl, pepcid, claritin daily. He was recently taking losartan (ARB) and Z-Calderon. He had his first of two Moderna vaccine on 06/29/20. He has been assessed in the ED here on 07/14, 07/18, 07/21, 07/23, and today, he was tested negative for mononucleosis, RPR, HIV, Covid during those visits. ROS: A 10-point review of systems, other than pertinent positives and negatives as stated per HPI, is otherwise negative Past medical history: No additional pertinent history Past Surgical history: No additional pertinent history Social history: No additional pertinent history Family history: No additional pertinent history PHYSICAL EXAM General: AOx4, GCS = 15, mild distress HEENT: dry mucous membrane, erythema to posterior oropharynx, Mallampati score = 1 Neck: supple, no meningismus, no Kernig or Brudzinski Cardiac: S1S2 tachycardia Respiratory: CTAB, no crackles or rales, no wheezing Abdomen: Soft, nontender, no rebound or guarding, nondistended, no pulsatile mass. Back: nontender Skin: Diffuse blanching urticarial rash on his face, upper back, upper chest and neck Musculoskeletal: NVI distally, no deformity Neuro: No focal deficits - Related Data Allergies Allergy/AdvReac Type Severity Reaction Status Date / Time azithromycin [From Zithromax] Allergy Rash Verified 07/25/20 04:40 Home Meds: Home Meds Loratadine [Claritin] 10 mg PO BID #60 tab 07/22/20 [Rx] predniSONE [Prednisone] 60 mg PO DAILY #21 tablet 07/23/20 [Rx] Lansoprazole [Prevacid] 15 mg PO DAILY 07/25/20 [History] Past Medical History HEENT History: Reports: None Cardiovascular History: Reports: Hypertension Respiratory History: Reports: Bronchitis, Recurrent, COPD Gastrointestinal History: Reports: GERD Genitourinary History: Reports: Prostate Disorder, Renal Calculus Musculoskeletal History: Reports: Arthritis Neurological History: Reports: None Psychiatric History: Reports: None Endocrine/Metabolic History: Reports: None Insulin Pump Model and Green Building Design Specialist: None Hematologic History: Reports: None Immunologic History: Reports: None Oncologic (Cancer) History: Reports: None Dermatologic History: Reports: Benign Melanoma - Infectious Disease History Infectious Disease History: Reports: Chicken Pox - Past Surgical History Head Surgeries/Procedures: Reports: None Respiratory Surgical History: Reports: None Male Surgical History: Reports: Lithotripsy (ESWL) Endocrine Surgical History: Reports: None Musculoskeletal Surgical History: Reports: Arthroscopic Procedure Dermatological Surgical History: Reports: Other (See Below) Social & Family History - Family History Family Medical History: No Pertinent Family History - Caffeine Use Caffeine Use: Reports: Coffee ED ROS GENERAL - Review of Systems Review Of Systems: See Below (see dictation) ED EXAM, GENERAL - Physical Exam Exam: See Below (see dictation) Course - Re-Assessments/Exams Free Text/Narrative Re-Assessment/Exam: 07/25/20 06:02 I reassessed this is an after receiving IV Solu-Medrol, Benadryl, Pepcid, he states the rash is getting worse, will give IM 0.3mg epinephrine. 07/25/20 06:04 C1-esterase inhibitor ordered for recurrent allergic reaction. 07/25/20 07:00 Case signed out to Dr. Danielson, to reassess patient around 10am. Departure - Departure Disposition: Home, Self-Care 01 Clinical Impression: Allergic reaction - Discharge Information *PRESCRIPTION DRUG MONITORING PROGRAM REVIEWED*: Not Applicable *COPY OF PRESCRIPTION DRUG MONITORING REPORT IN PATIENT CARLEE: Not Applicable Instructions: Anaphylactic Reaction, Adult Referrals: PCP,None [Primary Care Provider] - Forms: ED Department Discharge Additional Instructions: The following information is given to patients seen in the emergency department who are being discharged to home. This information is to outline your options for follow-up care. We provide all patients seen in our emergency department with a follow-up referral. The need for follow-up, as well as the timing and circumstances, are variable depending upon the specifics of your emergency department visit. If you don't have a primary care physician on staff, we will provide you with a referral. We always advise you to contact your personal physician following an emergency department visit to inform them of the circumstance of the visit and for follow-up with them and/or the need for any referrals to a consulting specialist. The emergency department will also refer you to a specialist when appropriate. This referral assures that you have the opportunity for follow-up care with a specialist. All of these measure are taken in an effort to provide you with optimal care, which includes your follow-up. Under all circumstances we always encourage you to contact your private physician who remains a resource for coordinating your care. When calling for follow-up care, please make the office aware that this follow-up is from your recent emergency room visit. If for any reason you are refused follow-up, please contact the [facility] Emergency Department at and asked to speak to the emergency department charge nurse. Please follow up with your primary care physician. If you do not have a primary care physician, see below: Rheumatology [phone] [address] [place] [address] [address] Above we have placed a number for Rheumatology to follow-up with. Please call and schedule appointment. If you have any other concerning symptoms please return to the ED immediately. Please continue to follow-up with your scheduled primary care appointment tomorrow. We are unsure what was causing this reaction . We also want you to follow-up with a neurologist that you have scheduled already. You have already been given EpiPen if you need any other assistance please return to the ED. <Valdez Danielson - Last Filed: 07/25/20 09:52> Course - Vital Signs Last Recorded V/S: Last Vital Signs Temp 98.9 F 07/25/20 04:20 Pulse 108 H 07/25/20 09:34 Resp 18 07/25/20 06:45 BP 125/82 07/25/20 09:34 Pulse Ox 93 L 07/25/20 09:34 - Orders/Labs/Meds Orders: Active Orders 24 hr Category Date Time Status Cardiac Monitoring [RC] . DIRECTED Care 07/25/20 04:25 Active Pulse Oximetry [RC] ASDIRECTED Care 07/25/20 04:25 Active C1 ESTERASE INHIBITOR, SERUM [REF] Stat Lab 07/25/20 05:30 Received Sodium Chloride 0.9% [Saline Flush] Med 07/25/20 04:25 Active 10 ml FLUSH ASDIRECTED PRN Sodium Chloride 0.9% [Saline Flush] Med 07/25/20 04:25 Active 2.5 ml FLUSH ASDIRECTED PRN Saline Lock Insert [OM.PC] Stat Oth 07/25/20 04:26 Ordered Medication Orders Sodium Chloride (Sodium Chloride 0.9% 10 Ml Syringe) 10 ml FLUSH ASDIRECTED PRN PRN Reason: Keep Vein Open Sodium Chloride (Sodium Chloride 0.9% 2.5 Ml Syringe) 2.5 ml FLUSH ASDIRECTED PRN PRN Reason: Keep Vein Open Labs: Laboratory Tests 07/25/20 07/25/20 Range/Units 04:20 04:20 WBC 18.21 H (4.0-11.0) K/uL RBC 5.33 (4.50-5.90) M/uL Hgb 17.0 (13.0-17.0) g/dL Hct 50.6 H (38.0-50.0) % MCV 94.9 (80.0-98.0) fL MCH 31.9 (27.0-32.0) pg MCHC 33.6 (31.0-37.0) g/dL RDW Std Deviation 46.1 (28.0-62.0) fl RDW Coeff of Mandi 13 (11.0-15.0) % Plt Count 337 (150-400) K/uL MPV 10.20 (7.40-12.00) fL Neut % (Auto) 90.9 H (48.0-80.0) % Lymph % (Auto) 6.3 L (16.0-40.0) % [place] % (Auto) 2.6 (0.0-15.0) % Eos % (Auto) 0.1 (0.0-7.0) % Baso % (Auto) 0.1 (0.0-1.5) % Neut # (Auto) 16.6 H (1.4-5.7) K/uL Lymph # (Auto) 1.2 (0.6-2.4) K/uL [place] # (Auto) 0.5 (0.0-0.8) K/uL Eos # (Auto) 0.0 (0.0-0.7) K/uL Baso # (Auto) 0.0 (0.0-0.1) K/uL Nucleated RBC % 0.0 /100WBC Nucleated RBCs # 0 K/uL Sodium 140 (136-148) mmol/L Potassium 4.2 (3.5-5.1) mmol/L Chloride 103 (98-107) mmol/L Carbon Dioxide 29.5 (21.0-32.0) mmol/L BUN 24 H (7.0-18.0) mg/dL Creatinine 1.4 H (0.8-1.3) mg/dL Est Cr Clr Drug Dosing TNP Estimated GFR (MDRD) 55.1 ml/min Glucose 145 H (74-106) mg/dL Calcium 9.2 (8.5-10.1) mg/dL Total Bilirubin 0.7 (0.2-1.0) mg/dL AST 27 (15-37) IU/L ALT 49 (14-63) IU/L Alkaline Phosphatase 69 (46-116) U/L Total Protein 7.2 (6.4-8.2) g/dL Albumin 3.5 (3.4-5.0) g/dL Globulin 3.7 (2.6-4.0) g/dL Albumin/Globulin Ratio 0.9 (0.9-1.6) Meds: Medications Generic Name Dose Route Start Last Admin Trade Name Freq PRN Reason Stop Dose Admin Sodium Chloride 10 ml 07/25/20 04:25 Sodium Chloride 0.9% 10 Ml Syringe FLUSH ASDIRECTED PRN Keep Vein Open Sodium Chloride 2.5 ml 07/25/20 04:25 Sodium Chloride 0.9% 2.5 Ml Syringe FLUSH ASDIRECTED PRN Keep Vein Open Discontinued Medications Generic Name Dose Route Start Last Admin Trade Name Freq PRN Reason Stop Dose Admin Diphenhydramine HCl 50 mg 07/25/20 04:25 07/25/20 04:35 Diphenhydramine 50 Mg/Ml Sdv IVPUSH 07/25/20 04:26 50 mg ONETIME ONE Administration Diphenhydramine HCl Confirm 07/25/20 04:28 07/25/20 04:37 Diphenhydramine 50 Mg/Ml Sdv Administered 07/25/20 04:29 Not Given Dose 50 mg .ROUTE .STK-MED ONE Epinephrine HCl 0.3 mg 07/25/20 06:02 07/25/20 06:19 Epinephrine 1 Mg/Ml Sdv IM 07/25/20 06:03 0.3 mg ONETIME ONE Administration Famotidine 20 mg 07/25/20 04:25 07/25/20 04:36 Famotidine 20 Mg/2 Ml Sdv IVPUSH 07/25/20 04:26 20 mg ONETIME ONE Administration Famotidine Confirm 07/25/20 04:28 07/25/20 04:37 Famotidine 20 Mg/2 Ml Sdv Administered 07/25/20 04:29 Not Given Dose 20 mg .ROUTE .STK-MED ONE Lactated Ringer's 1,000 mls @ 999 mls/hr 07/25/20 04:25 07/25/20 04:33 Ringers, Lactated IV 07/25/20 05:25 999 mls/hr .BOLUS ONE Administration Methylprednisolone Sodium Succinate 125 mg 07/25/20 04:25 07/25/20 04:33 Methylprednisolone Sodium Succinate 125 Mg/2 Ml Sdv IVPUSH 07/25/20 04:26 125 mg ONETIME ONE Administration Methylprednisolone Sodium Succinate Confirm 07/25/20 04:28 07/25/20 04:37 Methylprednisolone Sodium Succinate 125 Mg/2 Ml Sdv Administered 07/25/20 04:29 Not Given Dose 125 mg .ROUTE .STK-MED ONE Ondansetron HCl 4 mg 07/25/20 04:37 07/25/20 04:38 Ondansetron 4 Mg/2 Ml Sdv IVPUSH 07/25/20 04:38 4 mg ONETIME ONE Administration Ondansetron HCl 4 mg 07/25/20 04:39 07/25/20 04:43 Ondansetron 4 Mg/2 Ml Sdv IVPUSH 07/25/20 04:40 Not Given ONETIME ONE Ondansetron HCl Confirm 07/25/20 04:37 07/25/20 04:43 Ondansetron 4 Mg/2 Ml Sdv Administered 07/25/20 04:38 Not Given Dose 4 mg .ROUTE .[facility] ONE - Re-Assessments/Exams Free Text/Narrative Re-Assessment/Exam: 07/25/20 09:48 Patient was signed out to me from previous attending. Patient had a complicated past few weeks with possible allergic reactions. Patient has had CT scans duplex antibiotics and prednisone without any source of was causing these rashes. Patient was given epi by my colleague over 3 hours ago and has remained stable. Patient rash is improved. Patient was unsure if he did take his Covid vaccine second dose on Sunday. Told patient that the symptoms started at least 2 weeks after he received the vaccine and cannot say that these are related to the vaccine. Patient has appointment scheduled already with his PMD tomorrow and with immunology next week. We will also try to get patient follow- up with rheumatology as well. Patient given strict return precautions. Departure - Departure Time of Disposition: 09:50 Condition: Good - Discharge Information *PRESCRIPTION DRUG MONITORING PROGRAM REVIEWED*: Not Applicable *COPY OF PRESCRIPTION DRUG MONITORING REPORT IN PATIENT CARLEE: Not Applicable Sepsis Event Note (ED) - Focused Exam Vital Signs: Vital Signs Temp Pulse Resp BP Pulse Ox 07/25/20 09:34 108 H 125/82 93 L 07/25/20 09:19 121 H 116/86 93 L 07/25/20 09:04 124/79 07/25/20 08:49 125/84 07/25/20 08:34 131/83 07/25/20 08:19 115 H 123/78 93 L 07/25/20 08:04 116 H 122/78 91 L 07/25/20 07:49 118 H 130/82 93 L 07/25/20 07:34 119 H 135/78 93 L 07/25/20 07:19 121 H 130/77 91 L 07/25/20 07:04 135 H 140/77 92 L 07/25/20 06:45 119 H 18 131/75 93 L 07/25/20 05:17 122 H 16 119/84 94 L 07/25/20 04:20 98.9 F 137 H 18 132/90 94 L
[2020-07-25] MEDS ORDERED: Ondansetron 4 MG/2 ML SDV IVPUSH ONE ×2 (04:37→04:39)
[2020-07-25] MEDS ORDERED: Ondansetron 4 MG/2 ML SDV ONE (04:37)
[2020-07-25 04:54] LABS: BLOOD UREA NITROGEN,BUN 24 mg/dL (7.0-18.0); CARBON DIOXIDE,CO2 29.5 mmol/L (21.0-32.0); CHLORIDE,CL 103 mmol/L (98-107); GLUCOSE RANDOM 145 mg/dL (74-106); POTASSIUM,K 4.2 mmol/L (3.5-5.1); SODIUM,NA 140 mmol/L (136-148)
[2020-07-25] MEDS ORDERED: EPINEPHrine 1 MG/ML SDV IM ONE (06:02)
== END 2020-07-25 10:18 | disposition home or self-care (01) ==
LOC: MW.ED 04:16
DX: L50.0 Allergic urticaria (principal); I10 Essential (primary) hypertension; J44.9 Chronic obstructive pulmonary disease, unspecified; K21.9 Gastro-esophageal reflux disease without esophagitis; Z79.899 Other long term (current) drug therapy; Z88.1 Allergy status to other antibiotic agents
CPT/HCPCS: 36415; 80053; 85025; 86160; 96372; 96374; 96375; 99283; J0171; J1200; J2405; J2930; J3490; J7120; 99284

== ENCOUNTER 2020-07-27 05:01 | Emergency (ER) | payer OTHER ==
--- NOTE | 2020-07-27 05:05 | EDM.PDOC ---
ED HPI GENERAL MEDICAL PROBLEM - General Chief Complaint: Skin Complaint Stated Complaint: ALLERGIC REACTION Time Seen by Provider: 07/27/20 05:04 Source of Information: Reports: Patient History Limitations: Reports: No Limitations - History of Present Illness INITIAL COMMENTS - FREE TEXT/NARRATIVE: 44-year-old male with history of HTN, COPD, urticaria returns for flareup of his urticaria rash at 0300 today. He was seen on 07/25 in the ED and was given IM epinephrine, Solu-Medrol, Pepcid, Benadryl for urticaria hives. C1-esterase inhibitor was sent and pending. He was discharged with percocet by Dr. Danielson for foot pain but has not been taking it. He has been only taking benadryl and pepcid since her ED visit on 07/25. He has prednisone filled on 07/23 but did not take it, thinking that was what is causing his rash. Yesterday at 3pm he started noticing diffuse painful "burning" urticarial rash on his back and his chest. He denies shortness of breath, throat swelling sensation, fever, chills. He took 50mg benadryl at 1800, then another 50mg at 2330, then another 50mg at 0300 today. He also took claritin at 1800, and pepcid 20mg at 2330. He did not take his prednisone. He was seen here on 07/23 for anaphylaxis, he was prescribed EpiPen but did not fill it due to cost of medication. After being told that he needed to fill it on 07/25, he still did not fill it. He was recently taking losartan (ARB) and Z-Calderon but is no longer on it. He had his first of two Moderna vaccine on 06/29/20. He has been assessed in the ED here on 07/14, 07/18, 07/21, 07/23, and today, he was test ed negative for mononucleosis, RPR, HIV, Covid during those visits. He has an appointment to see an shipping associate on 08/05 at [facility]. ROS: A 10-point review of systems, other than pertinent positives and negatives as stated per HPI, is otherwise negative Past medical history: No additional pertinent history Past Surgical history: No additional pertinent history Social history: No additional pertinent history Family history: No additional pertinent history PHYSICAL EXAM General: AOx4, GCS = 15, mildly anxious, No distress, not hyperthermic. HEENT: dry mucous membrane, PERRL, EOMI, Pupils 5mm bilaterally, Mallampati score = 1, no stridor/hoarseness. Neck: supple, no meningismus, no Kernig or Brudzinski Skin: urticarial rash to upper back/anterior chest/neck. Cardiac: S1S2 tachycardia Respiratory: CTAB, no crackles or rales, no wheezing Abdomen: Soft, nontender Back: nontender Musculoskeletal: NVI distally Neuro: No focal deficits, no tremors, no myoclonic jerking, no seizure-like activity. Psych: no hallucinations. No delirium. - Related Data Allergies Allergy/AdvReac Type Severity Reaction Status Date / Time azithromycin [From Zithromax] Allergy Rash Verified 07/27/20 05:07 Home Meds: Home Meds Loratadine [Claritin] 10 mg PO BID #60 tab 07/22/20 [Rx] predniSONE [Prednisone] 60 mg PO DAILY #21 tablet 07/23/20 [Rx] Lansoprazole [Prevacid] 15 mg PO DAILY 07/25/20 [History] Past Medical History HEENT History: Reports: None Cardiovascular History: Reports: Hypertension Respiratory History: Reports: Bronchitis, Recurrent, COPD Gastrointestinal History: Reports: GERD Genitourinary History: Reports: Prostate Disorder, Renal Calculus Musculoskeletal History: Reports: Arthritis Neurological History: Reports: None Psychiatric History: Reports: None Endocrine/Metabolic History: Reports: None Insulin Pump Model and Book Publisher: None Hematologic History: Reports: None Immunologic History: Reports: None Oncologic (Cancer) History: Reports: None Dermatologic History: Reports: Benign Melanoma - Infectious Disease History Infectious Disease History: Reports: Chicken Pox - Past Surgical History Head Surgeries/Procedures: Reports: None Respiratory Surgical History: Reports: None Male Surgical History: Reports: Lithotripsy (ESWL) Endocrine Surgical History: Reports: None Musculoskeletal Surgical History: Reports: Arthroscopic Procedure Dermatological Surgical History: Reports: Other (See Below) Social & Family History - Family History Family Medical History: No Pertinent Family History - Caffeine Use Caffeine Use: Reports: Coffee ED ROS GENERAL - Review of Systems Review Of Systems: See Below (see dictation) ED EXAM, SKIN/RASH Exam: See Below (see dictation) #1 Interpretation EKG Interpretation Comments: Heart rate = 105 bpm, sinus tachycardia, WA 150ms, QRS 82ms, QTc 433ms, no STEMI. EKG and rhythm strip interpreted by me at 0550 Course - Vital Signs Last Recorded V/S: Last Vital Signs Temp 98.5 F 07/27/20 05:05 Pulse 108 H 07/27/20 05:40 Resp 18 07/27/20 05:40 BP 127/82 07/27/20 05:40 Pulse Ox 95 07/27/20 05:40 - Orders/Labs/Meds Meds: Medications Discontinued Medications Generic Name Dose Route Start Last Admin Trade Name Freq PRN Reason Stop Dose Admin Methylprednisolone Sodium Succinate 125 mg 07/27/20 05:25 07/27/20 05:29 Methylprednisolone Sodium Succinate 125 Mg/2 Ml Sdv IVPUSH 07/27/20 05:26 125 mg ONETIME ONE Administration - Re-Assessments/Exams Free Text/Narrative Re-Assessment/Exam: 07/27/20 06:57 After prolonged observation in the ER, his rash improved and he is currently stable for discharge. I performed a repeat exam and did not appreciate new ab normal findings. His tachycardia improved. I advised the patient to return to the ER for reevaluation if symptoms worsened, including fever, worsening pain, or any other worrisome symptoms. I instructed the patient to follow up with their appointment with Dr. Wily Mcfadden at [facility] on 08/05 for allergy skin testing. MEDICAL DECISION MAKING: I reviewed the patients past medical records, lab and radiographic findings. I discussed the case with the patient. My differential diagnosis included: Anticholinergic toxicity secondary to polypharmacy, allergic reaction. Patient has been seen by multiple providers in the ER and hospitalist over the past 2 weeks. He has been taking Claritin along with Benadryl, and occasionally taking H1 blockers more frequently than prescribed, thinking that would trigger his rash. He came in tachycardic and was slightly agitated and anxious. His QTC and QRS intervals were unremarkable, he was not delirious or hallucinating. He did not require any benzodiazepine or physostigmine. I educated him in no longer taking the Claritin and just stick with Benadryl, and to continue taking his Pepcid and prednisone. Stressed importance of filling his EpiPen in the event of true anaphylaxis. His urticarial rash improved after Solu-Medrol in the ED. He had no airway com promise. Departure - Departure Time of Disposition: 06:36 Disposition: Home, Self-Care 01 Condition: Good Clinical Impression: Allergic reaction, Urticaria - Discharge Information *PRESCRIPTION DRUG MONITORING PROGRAM REVIEWED*: Not Applicable *COPY OF PRESCRIPTION DRUG MONITORING REPORT IN PATIENT CARLEE: Not Applicable Instructions: Allergies, Adult, [id number] Referrals: Wily Mcfadden MD [Ordering Only Provider] - 08/05/20 Forms: ED Department Discharge Additional Instructions: The need for follow-up, as well as the timing and circumstances, are variable depending upon the specifics of your emergency department visit. If you don't have a primary care physician on staff, we will provide you with a referral. We always advise you to contact your personal physician following an emergency department visit to inform them of the circumstance of the visit and for follow-up with them and/or the need for any referrals to a consulting specialist. The emergency department will also refer you to a specialist when appropriate. This referral assures that you have the opportunity for follow-up care with a specialist. All of these measure are taken in an effort to provide you with optimal care, which includes your follow-up. Under all circumstances we always encourage you to contact your private physician who remains a resource for coordinating your care. When calling for follow-up care, please make the office aware that this follow-up is from your recent emergency room visit. If for any reason you are refused follow-up, please contact the [facility] Emergency Department at and asked to speak to the emergency department charge nurse. If you do not have a primary care doctor, please follow up with the clinics below within 3-5 days. [facility] - Primary Care [address] [place] [address] [facility] [address] [place] [address] Sepsis Event Note (ED) - Focused Exam Vital Signs: Vital Signs Temp Pulse Resp BP Pulse Ox 07/27/20 05:40 108 H 18 127/82 95 07/27/20 05:05 98.5 F 115 H 18 147/97 H 97
[2020-07-27] MEDS ORDERED: methylPREDNISolone Sodium Succinate 125 MG/2 ML SDV IVPUSH ONE (05:25)
== END 2020-07-27 06:40 | disposition home or self-care (01) ==
LOC: MW.ED 05:01
DX: L50.0 Allergic urticaria (principal); I10 Essential (primary) hypertension; K21.9 Gastro-esophageal reflux disease without esophagitis; J44.9 Chronic obstructive pulmonary disease, unspecified; R00.0 Tachycardia, unspecified; Z88.1 Allergy status to other antibiotic agents; Z79.899 Other long term (current) drug therapy
CPT/HCPCS: 93005; 96374; 99283; J2930; 93010

== ENCOUNTER 2021-12-13 21:10 | Emergency (ER) | payer BC ==
[2021-12-13] MEDS ORDERED: Morphine 4 MG/ML VIAL IVPUSH ONE (21:23)
[2021-12-13] MEDS ORDERED: Lactated Ringers 1,000 ML IV STA ×3 (21:23→23:01)
[2021-12-13] MEDS ORDERED: Ondansetron 4 MG/2 ML SDV IVPUSH ONE (21:23)
[2021-12-13] MEDS ORDERED: Ondansetron 4 MG/2 ML SDV ONE (21:25)
[2021-12-13] MEDS ORDERED: Morphine 4 MG/ML VIAL ONE (21:25)
[2021-12-13] MEDS ORDERED: HYDROmorphone 1 MG/ML Syringe IVPUSH ONE (21:33)
[2021-12-13] MEDS ORDERED: HYDROmorphone 1 MG/ML Syringe ONE (21:34)
[2021-12-13 22:27] LABS: CARBON DIOXIDE,CO2 23.2 mmol/L (21.0-32.0); POTASSIUM,K 4.6 mmol/L (3.5-5.1)
[2021-12-13] MEDS ORDERED: cefTRIAXone 2 GM in Premix Bag 1 BAG IV ONE (23:00)
== END 2021-12-14 01:25 | disposition home or self-care (01) ==
LOC: MW.ED 21:10
DX: G89.18 Other acute postprocedural pain (principal); R10.9 Unspecified abdominal pain; J44.9 Chronic obstructive pulmonary disease, unspecified; I10 Essential (primary) hypertension; Z88.1 Allergy status to other antibiotic agents; Z79.899 Other long term (current) drug therapy
CPT/HCPCS: 36415; 74176; 80053; 81001; 83605; 83690; 85025; 85610; 87040; 87086; 96361; 96365; 96375; 99284; J0696; J1170; J2270; J2405; J7120

== ENCOUNTER 2021-12-17 05:01 | Emergency (ER) | payer BC ==
[2021-12-17] MEDS ORDERED: Ondansetron 4 MG/2 ML SDV IVPUSH ONE (05:29)
[2021-12-17] MEDS ORDERED: Sodium Chloride 0.9% 1,000 ML IV ONE (05:29)
[2021-12-17] MEDS ORDERED: Ketorolac 30 MG/ML SDV IVPUSH ONE (05:32)
[2021-12-17] MEDS ORDERED: HYDROmorphone 1 MG/ML Syringe IVPUSH ONE (05:32)
[2021-12-17] MEDS ORDERED: Iopamidol 755 MG/ML 500 ML Multipack Bottle IVPUSH ONE (06:27)
[2021-12-17 06:39] LABS: POTASSIUM,K 4.3 mmol/L (3.5-5.1)
[2021-12-17] MEDS ORDERED: Ondansetron 4 MG Tab.DIS PO ONE (08:28)
[2021-12-17] MEDS ORDERED: Acetaminophen/oxyCODONE 325-10 MG Tab PO ONE (08:28)
== END 2021-12-17 09:02 ==
LOC: MW.ED 05:01
DX: N13.2 Hydronephrosis with renal and ureteral calculous obstruction (principal); I10 Essential (primary) hypertension; J44.9 Chronic obstructive pulmonary disease, unspecified; K21.9 Gastro-esophageal reflux disease without esophagitis; Z88.1 Allergy status to other antibiotic agents; Z79.899 Other long term (current) drug therapy
CPT/HCPCS: 36415; 74177; 80053; 81001; 83605; 83735; 85025; 96361; 96374; 96375; 99284; A9270; J1170; J1885; J2405; J7030; Q9967

== ENCOUNTER 2022-02-28 17:38 | Emergency (ER) | payer BC ==
[2022-02-28] MEDS ORDERED: Sodium Chloride 0.9% 1,000 ML IV ONE (19:57)
[2022-02-28] MEDS ORDERED: Ketorolac 30 MG/ML SDV IVPUSH ONE (20:09)
[2022-02-28] MEDS ORDERED: Ondansetron 4 MG/2 ML SDV IVPUSH ONE ×2 (20:09→21:38)
[2022-02-28 20:37] LABS: CARBON DIOXIDE,CO2 27.3 mmol/L (21.0-32.0); POTASSIUM,K 4.3 mmol/L (3.5-5.1)
[2022-02-28] MEDS ORDERED: Morphine 4 MG/ML Syringe IVPUSH ONE (21:38)
== END 2022-02-28 22:13 | disposition home or self-care (01) ==
LOC: MW.ED 17:38
DX: N20.0 Calculus of kidney (principal); J44.9 Chronic obstructive pulmonary disease, unspecified; I10 Essential (primary) hypertension; Z88.1 Allergy status to other antibiotic agents; Z79.899 Other long term (current) drug therapy
CPT/HCPCS: 36415; 74176; 80053; 81001; 85025; 96374; 96375; 96376; 99284; J1885; J2270; J2405; J7030

== ENCOUNTER 2023-03-31 10:45 | Emergency (ER) | payer BC ==
[2023-03-31] MEDS ORDERED: Sodium Chloride 0.9% 10 ML Syringe FLUSH PRN (11:09)
[2023-03-31] MEDS ORDERED: Sodium Chloride 0.9% 1,000 ML IV ONE (11:09)
[2023-03-31] MEDS ORDERED: Sodium Chloride 0.9% 2.5 ML Syringe FLUSH PRN (11:09)
[2023-03-31] MEDS ORDERED: Naloxone 0.4 MG/ML SDV IVPUSH PRN (11:09)
[2023-03-31] MEDS ORDERED: Ondansetron 4 MG/2 ML SDV IVPUSH ONE (11:09)
[2023-03-31] MEDS ORDERED: Morphine 4 MG/ML Syringe IVPUSH ONE (11:09)
[2023-03-31 11:16] LABS: BASOPHILS ABSOLUTE AUTO 0.06 K/uL (0.00-0.20); BASOPHILS PERCENT AUTO 0.8 % (0.0-1.0); EOSINOPHILS ABSOLUTE AUTO 0.35 K/uL (0.00-0.45); EOSINOPHILS PERCENT AUTO 4.5 % (0.0-6.0); HEMATOCRIT 45.4 % (42.0-52.0); HEMOGLOBIN 15.8 g/dL (14.0-18.0); IMMATURE GRAN ABSOLUTE AUTO 0.03 K/uL (0.00-0.05); IMMATURE GRAN PERCENT AUTO 0.4 % (0.0-0.4); LYMPHOCYTES ABSOLUTE AUTO 1.75 K/uL (1.00-4.80); LYMPHOCYTES PERCENT AUTO 22.3 % (24.0-44.0); MEAN CORPUSCULAR HEMOGLOBIN 32.6 pg (28.0-32.0); MEAN CORPUSCULAR HGB CONC 34.8 g/dL (32.0-36.0); MEAN CORPUSCULAR VOLUME 93.6 fL (83.0-99.0); MEAN PLATELET VOLUME 9.9 fL (9.4-12.4); MONOCYTES ABSOLUTE AUTO 0.53 K/uL (0.00-0.80); MONOCYTES PERCENT AUTO 6.8 % (0.0-8.0); NEUTROPHILS ABSOLUTE AUTO 5.12 K/uL (1.80-7.70); NEUTROPHILS PERCENT AUTO 65.2 % (41.0-71.0); PLATELET COUNT,PLT 271 K/uL (150-400); RED BLOOD CELL COUNT 4.85 M/uL (4.52-5.90); WHITE BLOOD CELL COUNT,WBC 7.84 K/uL (3.9-11.3)
[2023-03-31 11:29] LABS: A/G RATIO 1.4 (0.9-1.6); ALBUMIN 4.3 g/dL (3.4-5.0); BILIRUBIN TOTAL 0.3 mg/dL (0.2-1.0); CALCIUM 9.3 mg/dL (8.5-10.1); CARBON DIOXIDE,CO2 27.8 mmol/L (21.0-32.0); EST CRCL DRUG DOSING (CG) 82.41 mL/min; POTASSIUM,K 4.4 mmol/L (3.5-5.1); PROTEIN TOTAL,TP 7.4 g/dL (6.4-8.2)
[2023-03-31] MEDS ORDERED: Iopamidol 755 MG/ML 500 ML Multipack Bottle IVPUSH STA (11:40)
[2023-03-31 11:41] LABS: APPEARANCE,URINE CLEAR; BILIRUBIN,URINE NEGATIVE (NEGATIVE); COLOR,URINE YELLOW; GLUCOSE,URINE NEGATIVE (NEGATIVE); KETONES,URINE NEGATIVE (NEGATIVE); LEUKOCYTE ESTERASE,URINE NEGATIVE (NEGATIVE); NITRITE,URINE NEGATIVE (NEGATIVE); OCCULT BLOOD,URINE TRACE-INTACT (NEGATIVE); PH,URINE 6.5 (5.0-8.0); PROTEIN,URINE NEGATIVE (NEGATIVE); UROBILINOGEN,URINE 0.2 EU/dL (<2.0)
[2023-03-31] MEDS ORDERED: Ketorolac 30 MG/ML SDV IVPUSH ONE (11:48)
[2023-03-31 11:49] LABS: BACTERIA,URINE RARE (NEGATIVE); CALCIUM OXALATE CRYSTALS,URINE OCCASIONAL (NEGATIVE); EPITHELIAL CELLS,URINE OCCASIONAL (NONE-FEW)
[2023-03-31] MEDS ORDERED: cefTRIAXone 1 GM in Sodium Chloride 0.9% 50 ML IV ONE (12:12)
== END 2023-03-31 13:15 | disposition home or self-care (01) ==
LOC: MW.ED 10:45
DX: N39.0 Urinary tract infection, site not specified (principal); I10 Essential (primary) hypertension; J44.9 Chronic obstructive pulmonary disease, unspecified; Z79.899 Other long term (current) drug therapy; Z88.7 Allergy status to serum and vaccine
CPT/HCPCS: 36415; 74177; 80053; 81001; 83690; 85025; 96361; 96365; 96375; 99284; J0696; J1885; J2270; J2405; J3490; J7030; Q9967

== ENCOUNTER 2023-05-13 21:29 | Emergency (ER) | payer BC ==
[2023-05-13] MEDS ORDERED: Lidocaine 4% 1 each Patch TOP PRN (22:19)
[2023-05-13] MEDS ORDERED: Ketorolac 30 MG/ML SDV IM ONE (22:36)
== END 2023-05-14 00:05 | disposition home or self-care (01) ==
LOC: MW.ED 21:29
DX: M25.561 Pain in right knee (principal); I10 Essential (primary) hypertension; J44.9 Chronic obstructive pulmonary disease, unspecified; Z88.7 Allergy status to serum and vaccine; W18.40XA Slipping, tripping and stumbling without falling, unspecified, initial encounter
CPT/HCPCS: 73562; 73700; 96372; 99284; A9270; J1885; 99283